=== PATIENT | female | born 1950 | race Caucasian/White ===

== ENCOUNTER 2018-06-17 12:37 | Inpatient (IN) ==
--- NOTE | 2018-06-16 16:45 | Discharge Summary ---
<Saturnino Jara - Last Filed: 06/17/18 12:52> Orders not resulted at time of discharge: Pending orders 06/17/18 01:00 XR knee RT limited 1-2V [XR] Routine Hemoglobin and Hematocrit [HEME] Routine 06/17/18 07:55 US anesthesia pain block [US] Routine Date of Encounter: 06/17/18 - Discharge Diagnosis (1) Osteoarthritis of right knee Priority: Primary Status: Chronic Qualifiers: Osteoarthritis type: unspecified Qualified Code(s): M17.11 - Unilateral primary osteoarthritis, right knee (2) Status post total right knee replacement Priority: Primary Status: Acute (3) Osteoporosis Priority: Secondary Status: Chronic Qualifiers: Osteoporosis type: unspecified Presence of current pathological fracture: unspecified Qualified Code(s): M81.0 - Age-related osteoporosis without current pathological fracture (4) Diverticulosis Priority: Secondary Status: Chronic Qualifiers: Diverticulosis site: unspecified location Diverticulosis bleeding: diverticulosis without bleeding Qualified Code(s): K57.90 - Diverticulosis of intestine, part unspecified, without perforation or abscess without bleeding (5) History of gastric bypass Priority: Secondary Status: Chronic (6) JORDAN (obstructive sleep apnea) Priority: Secondary Status: Chronic - Hospital Course Hospital course: Ms. Starr is a 68 year old female - Time Spent with Patient Total time spent providing and/or coordinating discharge services: - Discharge Medications Home Medications: Aspirin Enteric Coated [Aspirin EC] 325 mg PO BID 10 Days #20 tablet. [Rx] OxyCODONE Immed Rel [Roxicodone 5 MG] 5 mg PO Q6HR PRN 7 Days #28 tablet [Rx] Cholecalciferol (D-3) [Vitamin D] 1,000 unit PO DAILY 06/17/18 [History] Escitalopram [Lexapro] 10 mg PO DAILY 06/17/18 [History] Ferrous Sulfate [Iron] 325 mg PO DAILY 06/17/18 [History] Ibandronate Sodium [Boniva] 150 mg PO QMONTH 06/17/18 [History] Latanoprost [Xalatan] 1 drop BOTH EYES HS 06/17/18 [History] Lisinopril [Zestril] 10 mg PO DAILY 06/17/18 [History] Quinine Sulfate [Qualaquin] 324 mg PO BID 06/17/18 [History] Temazepam [Restoril] 15 mg PO HS PRN 06/17/18 [History] clonazePAM [Klonopin] 0.5 mg PO HS 06/17/18 [History] Allergies/Adverse Reactions: 3 Allergy/AdvReac Type Severity Reaction Status Date / Time clindamycin AdvReac See Verified 06/17/18 13:09 Comments Penicillins AdvReac See Verified 06/17/18 13:09 Comments Sulfa (Sulfonamide AdvReac See Verified 06/17/18 13:09 Antibiotics) Comments cindamycin AdvReac See Uncoded 06/17/18 13:09 Comments Primary care physician: Griffin Guajardo MD - Patient Status Disposition: Transfer Inpatient Rehab Fac Condition: Good - Discharge Instructions Follow Up With: Saturnino Jara MD [Partnered Physician] - 07/17/18 4:10 pm Kristin Hodges PAC [Physician Registered Nurse Ambulatory] - 06/27/18 8:45 am (Second followup: 07/05/18 @ 10:15am) Additional Instructions: Discharge Instructions: Total Knee Replacement Please call [facility] ([phone]), your Primary Care Physician, or report to the Emergency Room if you have any of the following symptoms: Nausea, vomiting, fever greater that 101.5, swelling, chest pain, shortness of breath, increased pain/redness/drainage/odor for your incision site, numbness/ tingling, or any other concerning symptoms. ACTIVITY:Weight-bearing as tolerated. You may progress off support (crutches or walker) as tolerated. Incentive Spirometer 10 times an hour. MEDICATIONS: Upon discharge resume your home medications. Take all the medications as prescribed. Take a stool softener if taking narcotic pain medications. Stool softeners are only effective if you drink enough fluids. Drink 6-8 glass of water or fluids a day, unless this is not allowed for another health problem. Despite using stool softeners, if you haven't had a bowel movement in 3 days, please switch to a gentle laxative. Gentle laxatives are sold over the counter. You should have a bowel movement within 24 hours, if not call the office. You will be discharged from the hospital with a prescription for pain medication. You are encouraged to decrease the use of narcotic pain medication as tolerated. Should you require a refill, please call the office. [facility] prescribes narcotic pain medication for only 4-6 weeks after surgery. If you require pain medication beyond this time period, you may be referred to your Primary Care Physician or to the Pain Clinic for further evaluation. Plan ahead for refills on pain medication as many narcotics either need to be picked up at the office or mailed. It is best to call 48-72 hours in advance of needing a prescription refill so you don't run out of medication. To help control the post-operative pain, you may take NSAIDs (Aleve,Advil, Motrin, Ibuprofen, Naprosyn) or Tylenol as prescribed on the bottle in addition to the pain medication. ANTICOAGULATION (blood thinners): Continue your Aspirin, Lovenox or Coumadin as prescribed to help prevent a blood clot in the leg or in the lungs. As long as your incision remains dry and you tolerate the NSAIDs (Aleve, Advil, Motrin, ibuprofen, naprosyn), it is OK to use the NSAIDS while you are taking your anticoagulation medication. Should your incision start to drain, stop the NSAID and contact our office. Common symptoms of blood clot in the legs include: localized pain, swelling, calf tenderness, redness or discoloration of the skin. Blood clot in the lung symptoms include: shortness of breath, rapid pulse, sweating, and chest pain that worsens with deep breathing, coughing up blood, lightheadedness, feelings of anxiety. If you experience any of these symptoms notify your physician immediately, go to the emergency room, or if having trouble breathing, call 911. WOUND CARE: Leave the dressing on for 7 to 10days. You may change the dressing if it becomes saturated greater than 50%. Do not get the dressing wet at anytime. Wash your hands with antibacterial soap, rinse and dry prior to any wound care. If you have carlos the visiting nurse or rehab facility can remove the stapes 10-14 days after surgery and place steri-strips across the wound. Leave the steri-strips in place until they fall off on their won. You may let water from the shower run on top of the steri-strips. If you do not have a visiting nurse or rehab facility, you will need to return to the office at 10-14 days for the cralos to be removed. If you have itching or redness around the dressing call the office. FOLLOW-UP: Please follow up with your surgeon in the orthopedic clinic in 4 weeks from the day of surgery. If you have carlos that need to be removed, you will need to come back to the office in 10-14 days from the day of surgery. <Cat Jaeger E - Last Filed: 06/21/18 12:34> Orders not resulted at time of discharge: Pending orders 06/17/18 01:00 XR knee RT limited 1-2V [XR] Routine Hemoglobin and Hematocrit [HEME] Routine Date of Encounter: 06/21/18 Time of Encounter: 12:34 - Discharge Diagnosis (1) Osteoarthritis of right knee Priority: Primary Status: Chronic Qualifiers: Osteoarthritis type: unspecified Qualified Code(s): M17.11 - Unilateral primary osteoarthritis, right knee (2) Status post total right knee replacement Priority: Primary Status: Acute (3) JORDAN (obstructive sleep apnea) Priority: Secondary Status: Chronic (4) Osteoporosis Priority: Secondary Status: Chronic Qualifiers: Osteoporosis type: unspecified Presence of current pathological fracture: unspecified Qualified Code(s): M81.0 - Age-related osteoporosis without current pathological fracture (5) HTN (hypertension) Priority: Secondary Status: Chronic Qualifiers: Hypertension type: unspecified Qualified Code(s): I10 - Essential (primary ) hypertension (6) Diverticulosis Priority: Secondary Status: Chronic Qualifiers: Diverticulosis site: unspecified location Diverticulosis bleeding: diverticulosis without bleeding Qualified Code(s): K57.90 - Diverticulosis of intestine, part unspecified, without perforation or abscess without bleeding (7) History of gastric bypass Priority: Secondary Status: Chronic - Hospital Course Hospital course: Ms. Starr is a 68 year old female POD# 4 status post right total knee robotic 06/17/18 Dr. Jara Patient seen at bedside. Resting comfortably in bed. Alert and oriented x 3. Incision clean dry and intact. Dressing intact. No calf tenderness to bilateral lower extremities. neurovascularly intact to bilateral lower extremities Labwork and medications reviewed Vital signs reviewed. Pain control: Adequate - patient with intermittent muscle spasms - tizanidine and Lidoderm for local and systemic pain relief 06/18. These have been helping pain. Participating in PT. PT --> rehab swing bed. All questions and concerns addressed. Educated on use of incentive spirometer, ambulation, and hydration. Patient educated on post-operative restrictions and care. Addressed: see above. Patient converted to inpt status D/C plan: accepted at [facility] rehab on Thursday 06/21 Patient had outpatient scripts filled and daughter took home on POD#1 when patient was anticipated home discharge. Patient was subsequently found to need inpatient rehab. Patient to take ASA 325mg BID for 10 days total and use script filled of Oxycodone when discharged from [facility] for home use as directed on label. Keep follow up with [facility]. - Time Spent with Patient Total time spent providing and/or coordinating discharge services: Date of admission: 06/17/18 Primary care physician: Griffin Guajardo MD Anticipated date of discharge: 06/21/18 Labs on day of discharge: Laboratory Results - last 72 hr 06/19/18 06/19/18 00:50 00:50 Hgb 8.9 L Hct 27.7 L Sodium 134 L Potassium 4.0 Chloride 103 Carbon Dioxide 26 BUN 17 Creatinine 0.83 Est GFR ( Amer) > 60 Est GFR (Non-Af Amer) > 60 BUN/Creatinine Ratio 20 Glucose 141 H Calculated Osmolality 282 Calcium 8.4 L - Impressions Knee X-Ray 06/17/18 01:00 IMPRESSION: Status post right knee arthroplasty without acute postoperative complication. D/ / 06/17/2018 16:19:54 Jamil Murphy MD / Lucrecia Musa Interpreting Provider: Jamil Murphy MD - Patient Status Functional capacity at discharge: uses cane/walker Overall status at discharge: patient is progressing back to baseline - Diet and Activity Activity: as per physical therapy Diet: advance to your usual diet
--- NOTE | 2018-06-16 16:47 | Physician Discharge Referral ---
Home Health/Hosp Referral Info Transfer to: Home Health Attending Provider: Dr. Saturnino Jara Provider in Charge Post Discharge: PCP - Diagnosis (1) Osteoarthritis of right knee Priority: Primary Status: Chronic (2) Status post total right knee replacement Priority: Primary Status: Acute (3) JORDAN (obstructive sleep apnea) Priority: Secondary Status: Chronic (4) Osteoporosis Priority: Secondary Status: Chronic (5) HTN (hypertension) Priority: Secondary Status: Chronic (6) Diverticulosis Priority: Secondary Status: Chronic (7) History of gastric bypass Priority: Secondary Status: Chronic - Respiratory Orders Smoking Cessation: Smoking cessation has been advised. For more information, call the [place] Tobacco Quit Line at 7-089-HQYL-NOW. - Dressing/Wound Care Site: right knee Type of Dressing/Treatments w/Frequency: Opsite placed. Keep dressing intact until first follow up appointment. If greater than 50% saturated, notify office, remove dressing and place appropriate dressing back in place. Leave Zipline intact. Opsite dressing is water resistant, not water-proof. OK to shower, but do not get dressing wet. - Diet/Nutrition Diet/Nutrition Orders: Regular - Activity Activity Orders: Up ad sarah, Ambulate, Chair, Walker Activity: List: Total Knee replacement Precautions x 6 weeks Apply cold therapy wrap 3-6x/day for 20 minutes at a time. Encourage ambulation throughout the day and incentive spirometer 10x/hour. Elevate affected extremity above heart as tolerated. Brace: Wear knee immobilizer at night x 2 weeks. - Services Needed Following services are medically necessary services: Nursing, Home Health Aide, Physical Therapy, Occupational Therapy, Med Social Work - Transfer Medications Prescriptions: OxyCODONE Immed Rel [Roxicodone 5 MG] 5 mg PO Q6HR PRN 7 Days #28 tablet PRN Reason: Severe Pain Aspirin Enteric Coated [Aspirin EC] 325 mg PO BID 10 Days #20 tablet. Home Medications: Azithromycin [Azithromycin 6-Tab Pack] 250 mg PO DAILY #6 tab 11/20/15 [Rx] Benzonatate [Tessalon] 200 mg PO TID PRN #30 capsule 11/20/15 [Rx] GuaiFENesin ER [Mucinex] 1,200 mg PO BID #20 tbbp.12hr 11/20/15 [Rx] Aspirin Enteric Coated [Aspirin EC] 325 mg PO BID 10 Days #20 tablet. [Rx] OxyCODONE Immed Rel [Roxicodone 5 MG] 5 mg PO Q6HR PRN 7 Days #28 tablet [Rx] Allergies/Adverse Reactions: 3 Allergy/AdvReac Type Severity Reaction Status Date / Time clindamycin Allergy See Verified 05/27/18 15:43 Comments Penicillins Allergy See Verified 05/27/18 15:43 Comments Sulfa (Sulfonamide Allergy See Verified 05/27/18 15:42 Antibiotics) Comments cindamycin Allergy See Uncoded 09/04/17 23:08 Comments Certification: Further, I certify that my clinical findings support that this patient is homebound (i.e. absences from home require considerable and taxing effort and are for medical reasons or tenriism services or infrequently or short duration when for other reasons) because: Homebound Reason: Post-surgery restriction and or conditions limit ability to leave home Attestation: My signature below is to certify that this patient is under my care and that I, or nurse practitioner, or a physician development assistant working with me, has a face-to- face encounter with this patient.
--- NOTE | 2018-06-17 12:52 | History & Physical Report ---
Date of Encounter: 06/17/18 Time of Encounter: 12:52 24 Hour HP Update - Instructions Instructions: If the History and Physical is less than 30 days old and was completed prior to A.M. admission and or procedure and has NOT been updated on calendar day of procedure please complete this update prior to performing procedure. - Update Patient reports changes in Medical Condition: No Changes in examination, assessment, or condition: No Changes in Medication: No Preop tests/diagnostics Reviewed: Yes Surgery Remains Indicated: Yes Consent for Planned Operative Procedure(s) Verified: Yes - Pre-Operative Checklist Preoperative Checklist Indicated: No Prophylactic Antibiotic Ordered: Yes Is VTE Prophylaxis Indicated?: Yes
[2018-06-17] MEDS ORDERED: CeFAZolin Syr 2,000MG/20 ML 2,000 MG/20 ML SYRINGE IVPB ONE (12:55)
[2018-06-17] MEDS ORDERED: Ringers Solution, Lactated 1,000 ML IVC SCH ×2 (13:00→17:24)
[2018-06-17] MEDS ORDERED: ROPIVACAINE HCL/PF 0.5% 30 ML VIAL ONE (13:09)
[2018-06-17] MEDS ORDERED: Bupivacaine/Clonidine Syringe 1 EACH SYRINGE ONE (13:10)
[2018-06-17] MEDS ORDERED: Ethanol\\Acetic Acid\\Na Ace\\Ben 1,000 ML IRRIG.SOLN IR ONE (13:10)
--- NOTE | 2018-06-17 13:12 | Anesthesia Evaluation PreOp ---
Date of Encounter: 06/17/18 Time of Encounter: 13:10 - Past History Planned Operation: Right TKA Cardiac History: HTN Pulmonary History: JORDAN Dx (Not using CPAP) BAR STAFF History: Other (Insomnia, arthritis) Other Medical History: Renal (Renal Insufficiency, Stage 2 CKD on pre operative labs), Other (Hypoglycemia episodes (infrequent), Elevated PTT in preop labs) Anesthesia History: No Prior Anesthetic Complications, Past Anesthesia Alcohol Use: none Drug use: none Medications and Allergies Aspirin Enteric Coated [Aspirin EC] 325 mg PO BID 10 Days #20 tablet. [Rx] OxyCODONE Immed Rel [Roxicodone 5 MG] 5 mg PO Q6HR PRN 7 Days #28 tablet [Rx] Cholecalciferol (D-3) [Vitamin D] 1,000 unit PO DAILY 06/17/18 [History] Escitalopram [Lexapro] 10 mg PO DAILY 06/17/18 [History] Ferrous Sulfate [Iron] 325 mg PO DAILY 06/17/18 [History] Ibandronate Sodium [Boniva] 150 mg PO QMONTH 06/17/18 [History] Latanoprost [Xalatan] 1 drop BOTH EYES HS 06/17/18 [History] Lisinopril [Zestril] 10 mg PO DAILY 06/17/18 [History] Quinine Sulfate [Qualaquin] 324 mg PO BID 06/17/18 [History] Temazepam [Restoril] 15 mg PO HS PRN 06/17/18 [History] clonazePAM [Klonopin] 0.5 mg PO HS 06/17/18 [History] 3 Allergy/AdvReac Type Severity Reaction Status Date / Time clindamycin AdvReac See Verified 06/17/18 13:09 Comments Penicillins AdvReac See Verified 06/17/18 13:09 Comments Sulfa (Sulfonamide AdvReac See Verified 06/17/18 13:09 Antibiotics) Comments cindamycin AdvReac See Uncoded 06/17/18 13:09 Comments - Meds/Allergy Pre-op Review Medications Reviewed: Yes Allergies Reviewed: Yes Beta Blockers on Current Med List: No Anesthesia Results - Labs Laboratory Tests 05/27/18 05/27/18 05/27/18 15:43 15:43 15:43 Hgb 12.0 Hct 37.3 Plt Count 193 PT 11.4 INR 1.0 APTT 47.5 H Sodium 140 Potassium 4.5 Chloride 111 H Carbon Dioxide 23 Creatinine 1.13 Est GFR (Non-Af Amer) 48 L Anesthesia Exam O2 Sat Height 1.6 m Height 1.6 m Weight 70.76 kg Weight 70.76 kg O2 Sat by Pulse Oximetry 100 Vital Signs/O2 Sat/Glucose, Most Recent Temp Pulse Resp BP Pulse Ox 97.9 F 66 18 126/69 100 06/17/18 12:57 06/17/18 12:57 06/17/18 12:57 06/17/18 12:57 06/17/18 12:57 Blood Glucose* 83 NPO (# of Hours): 8 - HEENT Pupil (Motor): Pupils equal Mallampati: I Teeth: Normal Oral Opening: Greater than 3 - BAR STAFF LOC: Oriented - Cardiac Rhythm: Regular - Pulmonary Breath Sounds: bilateral Clear Anesthesia Assess/Plan ASA Score: 3 Modified Brian Scale for Level of Consciousness: Cooperative, oriented, and tranquil Anesthetic Plan: General, Regional (Nerve block for post operative pain) Monitoring Plan: Standard Monitors Recovery Plan: PACU
[2018-06-17] MEDS ORDERED: *HR* Midazolam HCl 2 MG/2 ML VIAL ONE (13:16)
[2018-06-17] MEDS ORDERED: Ondansetron 4 MG/2 ML VIAL ONE (13:16)
[2018-06-17] MEDS ORDERED: *HR* FentaNYL (PF) 100 MCG/2 ML VIAL ONE ×2 (13:16→13:46)
[2018-06-17] MEDS ORDERED: Dexamethasone 4 MG/ML VIAL ONE (13:16)
[2018-06-17] MEDS ORDERED: Lidocaine -MPF 2% 2 ML VIAL ONE (13:17)
[2018-06-17] MEDS ORDERED: Propofol 500 MG/50 ML INFUS..BTL ONE (13:17)
[2018-06-17] MEDS ORDERED: *HR* Rocuronium Bromide 50 MG/5 ML VIAL ONE (13:45)
[2018-06-17] MEDS ORDERED: Lidocaine -MPF 4% 5 ML AMPUL ONE (13:45)
[2018-06-17] MEDS ORDERED: *HR* Succinylcholine 200 MG/10 ML VIAL IVP ONE (13:45)
[2018-06-17] MEDS ORDERED: EPHEDrine 50 MG/ML VIAL ONE (14:05)
[2018-06-17] MEDS ORDERED: *HR* PHENYLEPHRINE 1,000 MCG/10 ML SYRINGE IVP ONE (14:07)
[2018-06-17] MEDS ORDERED: *HR* Promethazine 25 MG/ML VIAL IVP PRN (14:36)
[2018-06-17] MEDS ORDERED: *HR* HYDROmorphone 2 MG TABLET PO PRN (14:36)
[2018-06-17] MEDS ORDERED: Dexamethasone 4 MG/ML VIAL IVP ONE (14:36)
[2018-06-17] MEDS ORDERED: Naloxone 0.4 MG/ML INJ IVP PRN ×2 (14:36→17:24)
[2018-06-17] MEDS ORDERED: *HR* OxyCODONE Immed Rel 5 MG TABLET PO PRN ×2 (14:36→17:24)
--- NOTE | 2018-06-17 14:42 | Anesthesia Procedures ---
Date of Encounter: 06/17/18 Time of Encounter: 13:36 Procedures: Anesthesia - Nerve Block Procedure Date: 06/17/18 Time: 13:36 Allergies/Adv Reactions: allergies noted, no complications/reactions noted with block Pre-op Diagnosis: Right knee arthritis Surgical Procedure: Right total knee arthroplasty Checklist: Correct Patient Identifier, Correct procedure, History checked Correct side: Right Blood Thinner: No Monitor Applied: EKG, BP, Pulse Oximetry Supplemental Oxygen via Nasal Cannula (L/min): 2 Sedation: Versed (mg): 2 Sedation: Fentanyl (mcg): 100 Indication: Post Op Analgesia Pre-op Neuro Deficits: No Block Type: Other (Adductor canal, IPACK ) Catheter placed: No Sterile Technique: Yes Ultrasound used: Yes Anatomy identified: Yes Visual spread of Local: Yes Neuro Stimulation: No Blood on Needle Aspiration: No Smooth Injection of Local: Yes Pain with Injection of Local: No Prep: Chlorhexadine Needle: 21 x 100 mm Stimuplex Local: 0.25% Bupivicaine w/Clonidine 20 mcg/cc (30 ml with IPACK), Ropivacaine ( 30ml 0.5% Ropivacaine with adductor canal block) Number of Attempts: 1 Complications: None/effective block Vitals: Vital Signs/O2 Sat/Glucose, Most Recent Temp Pulse Resp BP Pulse Ox 97.9 F 63 15 108/53 100 06/17/18 12:57 06/17/18 13:45 06/17/18 13:45 06/17/18 13:45 06/17/18 13:45 Blood Glucose* 83
[2018-06-17] MEDS ORDERED: Neostigmine Methylsulfate 3 MG/3 ML SYRINGE ONE (14:53)
--- NOTE | 2018-06-17 14:53 | Orthopedic Operative Note ---
Date of procedure: 06/17/18 Pre-op diagnosis: Right knee arthritis Post-op diagnosis: same Procedure: Procedure: Right robotic-assisted Total knee replacement Estimated blood loss: 300 cc Hardware: Metal and polyethylene replacement. Carville Femur: 4 Tibia:5 TS insert: 16 Patella: 36 Exam Under anesthesia: 8 degrees flexion contracture 16 degree varus as calculated by the robot full flexion and no instability Procedural Notes: Grade 4 arthritic changes all 3 compartments. Operative procedure: The patient was brought to the operating room and placed on the operating room table. After general anesthesia was administered the operative knee was examined. Findings were noted in the exam under anesthesia. The operative extremity was prepped and draped in sterile surgical fashion. The patient received IV antibiotics prior to skin incision. A standard midline incision was made centered over the patella. The incision was made through the skin and subcutaneous tissue. A medial parapatellar tendon approach was performed. Care was taken to preserve tissue along the medial aspect of the patella. And to protect the patella tendon. The deep MCL was released off the medial tibia. The infra patella fat pad was excised. The patella was everted and cut was made at the level of the insertion of the quadriceps and patella tendon. The patella was sized to 36 the guide was seated and the lug holes are drilled. Knee was brought into flexion. Patient noted to have grade 4 arthritic changes all 3 compartments. Steinmann pins were placed in the tibia and the femur for the tibial and femoral arrays respectively. Checkpoints were also placed in the tibia and the femur for calculation purposes. The knee including the femur and the tibial registered. Osteophytes, ACL and PCL were excised at this point. Extension and flexion were assessed with a valgus stress components were adjusted on the computer to balance the knee. Femoral cuts were made first with robotic assistance, these included the anterior cut posterior cuts chamfer cuts. Tibial cut was then performed with robotic assistance as well. Bone fragments were removed, as well as the medial and lateral meniscus. The size 4 femoral guide was seated box cut was made lug holes are drilled. The size 5 tibial tray was seated and prepared with the fin cutter. Trial reduction with the 16 TS Francia revealed extension of 0 degree and 7 degree varus full flexion. No varus valgus instability. Trial reduction revealed excellent patella tracking. All trial components were removed all bony surfaces were irrigated. The Tibia was seated followed by the femur, The Francia size 16 was seated and secured patella. Patient had similar findings for motion and stability. The knee was closed by the PA. The knee was then irrigated out with 2 L of pulse irrigation. The extensor mechanism was closed with #2 FiberWire suture and #2 PDS suture. The subcutaneous tissue was then irrigated and closed deep with #1 PDS suture superficially with 0 PDS suture and skin was closed with zip tie The patient was then placed in a sterile dressing and a postoperative brace extubated and transferred to recovery room in stable condition. Anesthesia: GETA Surgeon: Saturnino Jara Was there an nurse practitioner physicians assistant present: Yes Skill Labor: Kristin Hodges Estimated blood loss (cc): 300 Condition: stable Disposition: PACU
[2018-06-17] MEDS ORDERED: *HR* Morphine 10 MG/ML VIAL ONE (15:17)
[2018-06-17] MEDS: MORPHINE SUL Oral CONC 10 MG/0.5 ML ORAL.SYG SL PRN ×2 (15:45→15:56)
[2018-06-17] MEDS ORDERED: NON-FORMULARY MEDICATION 1 EACH EACH (Ibandronate Sodium [Boniva] 150 MG) PO SCH (17:24)
[2018-06-17] MEDS ORDERED: Sennosides 8.6 MG TABLET PO PRN (17:24)
[2018-06-17] MEDS ORDERED: Ondansetron 4 MG/2 ML VIAL IVP PRN (17:24)
[2018-06-17] MEDS ORDERED: traMADol 50 MG TABLET PO PRN (17:24)
[2018-06-17] MEDS ORDERED: MOM Conc 10 ML UD.LIQ PO PRN (17:24)
[2018-06-17] MEDS ORDERED: Temazepam 15 MG CAPSULE PO PRN ×2 (17:24)
[2018-06-17] MEDS ORDERED: Vancomycin 1,000 MG VIAL IVPB SCH (17:24)
[2018-06-17] MEDS: *HR* OxyCODONE/APAP 5/325 TABLET PO PRN (18:17)
[2018-06-17] MEDS: *HR* Enoxaparin 30 MG/0.3 ML SYRINGE SQ SCH (18:18)
--- NOTE | 2018-06-17 18:25 | Anesthesia Evaluation Post Op ---
Date of Encounter: 06/17/18 Time of Encounter: 16:15 Notes: Patient's vital signs have been reviewed. Patient is stable postoperatively and has adequately recovered from anesthesia. Patient is determined to have stable airway patency and respiratory function including respiratory rate and oxygen saturation. Patient has a stable heart rate, blood pressure and adequate hydration. Patients mental status is acceptable. Patients temperature is appropriate. Pain and nausea are adequately controlled. - Discharge PostOp Status: Transfer Patient to floor
[2018-06-17] MEDS: Latanoprost 2.5 ML BOTTLE BOTH EYES SCH (21:14)
[2018-06-17] MEDS: QUININE SULFATE 324 MG PO SCH (21:14)
[2018-06-17] MEDS: clonazePAM 0.5 MG TABLET PO SCH (21:14)
[2018-06-18] MEDS: *HR* OxyCODONE/APAP 5/325 TABLET PO PRN ×5 (00:56→20:10)
[2018-06-18 01:44] LABS: Hematocrit 30.6 % (35.3-44.9); Hemoglobin 9.5 g/dL (11.5-15.4)
[2018-06-18 02:03] LABS: BUN/Creatinine Ratio 24 (6-26); Blood Urea Nitrogen 20 mg/dL (8-23); Calcium 8.3 mg/dL (8.6-10.3); Carbon Dioxide 22 mEq/L (23-29); Chloride 105 mEq/L (98-107); Glucose 213 mg/dL (70-105); Osmolality,Calculated 287 (280-300); Sodium 134 mEq/L (136-145); eGFR For Non-African Americans > 60 (> 60)
[2018-06-18] MEDS: *HR* Enoxaparin 30 MG/0.3 ML SYRINGE SQ SCH ×2 (05:12→17:24)
--- NOTE | 2018-06-18 06:51 | Orthopedics Progress Note ---
Date of Encounter: 06/18/18 Time of Encounter: 06:51 - Assessment and Plan (1) Osteoarthritis of right knee Current Visit: No Status: Chronic Qualifiers: Osteoarthritis type: unspecified Qualified Code(s): M17.11 - Unilateral primary osteoarthritis, right knee (2) Status post total right knee replacement Current Visit: No Status: Acute (3) Osteoporosis Current Visit: No Status: Chronic Qualifiers: Osteoporosis type: unspecified Presence of current pathological fracture: unspecified Qualified Code(s): M81.0 - Age-related osteoporosis without current pathological fracture (4) Diverticulosis Current Visit: No Status: Chronic Qualifiers: Diverticulosis site: unspecified location Diverticulosis bleeding: diverticulosis without bleeding Qualified Code(s): K57.90 - Diverticulosis of intestine, part unspecified, without perforation or abscess without bleeding (5) History of gastric bypass Current Visit: No Status: Chronic (6) JORDAN (obstructive sleep apnea) Current Visit: No Status: Chronic Subjective Interval history: Patient was seen this morning doing well without complaints. Afebrile vital signs stable. Operative extremity: Neurovascularly intact Dressing clean dry and intact Calves nontender Assessment and plan: Continue with postoperative care Hematocrit 30.6 discharged today Objective Vital signs: Vital Signs Temp Pulse Resp BP Pulse Ox 06/18/18 03:45 97.6 F 69 16 98/60 98 06/17/18 23:35 97.7 F 65 16 99/62 96 06/17/18 22:32 97.8 F 69 16 100/62 98 06/17/18 21:07 97.5 F L 68 16 92/55 100 06/17/18 19:39 97.9 F 63 16 106/62 100 06/17/18 19:26 96.5 F L 62 16 92/55 94 06/17/18 18:20 97.4 F L 68 17 101/67 93 06/17/18 17:50 97.5 F L 73 16 119/67 100 06/17/18 17:07 97.5 F L 63 16 101/65 100 06/17/18 16:27 97.6 F 58 16 121/56 100 06/17/18 16:17 57 16 131/59 100 06/17/18 16:07 59 14 124/60 100 06/17/18 15:57 97.8 F 65 16 123/62 100 06/17/18 15:47 62 16 118/59 100 06/17/18 15:37 59 16 128/62 99 06/17/18 15:27 98.0 F 66 16 127/57 100 06/17/18 13:45 63 15 108/53 100 06/17/18 13:23 67 16 134/62 100 06/17/18 12:57 97.9 F 66 18 126/69 100 Intake and Output 06/17/18 06/17/18 06/18/18 15:59 23:59 07:59 Intake Total 20 / 20 500 / 500 250 / 250 Output Total 300 / 300 0 / 0 Balance -280 / -280 500 / 500 250 / 250 Intake: IV Fluids 20 / 20 250 / 250 Ancef Syringe 2,000 MG/20 ML 2, 20 / 20 000 mg In 20 ml @ 200 mls/hr IVPB PREOP ONE Rx#:[id number] Vancocin 1,000 MG In 0.9 % 250 / 250 Sodium Chloride 250 ML @ 167 mls/hr IVPB Q12H [facility] Rx#: [id number] Oral 250 / 250 250 / 250 Output: Urine 0 / 0 Estimated Blood Loss 300 / 300 Other: # Voids 1 1 Weight 70.76 kg Blood Glucose* 112 - Labs CBC & BMP: 06/18/18 01:15 06/18/18 01:15 Labs: Abnormal lab results Hgb 9.5 g/dL (11.5-15.4) L D 06/18/18 01:15 Hct 30.6 % (35.3-44.9) L 06/18/18 01:15 Sodium 134 mEq/L (136-145) L 06/18/18 01:15 Carbon Dioxide 22 mEq/L (23-29) L 06/18/18 01:15 Glucose 213 mg/dL (70-105) H 06/18/18 01:15 Calcium 8.3 mg/dL (8.6-10.3) L 06/18/18 01:15 - VTE Documentation of Mechanical Device: Venous foot pump, device Consult Discharge Plan - Plan Referrals: Griffin Guajardo MD [Primary Care Provider] - Prescriptions: Aspirin Enteric Coated [Aspirin EC] 325 mg PO BID 10 Days #20 tablet. OxyCODONE Immed Rel [Roxicodone 5 MG] 5 mg PO Q6HR PRN 7 Days #28 tablet PRN Reason: Severe Pain
[2018-06-18] MEDS: Cholecalciferol (D-3) 1,000 UNIT TABLET PO SCH (08:29)
[2018-06-18] MEDS: QUININE SULFATE 324 MG PO SCH ×2 (08:29→20:11)
[2018-06-18] MEDS ORDERED: tiZANidine 4 MG TABLET PO PRN (12:28)
--- NOTE | 2018-06-18 18:28 | Event Note ---
Date of Encounter: 06/18/18 Time of Encounter: 12:50 PCR- POD# 1 status post right total knee robotic 06/17/18 Dr. Jara PCR - Patient seen at bedside. Alert and oriented x 3. Incision clean dry and intact. Dressing intact. No calf tenderness to bilateral lower extremities. neurovascularly intact to bilateral lower extremities Labwork and medications reviewed. H/H 9.5/30.6 Vital signs reviewed. Pain control: Adequate - patient with intermittent muscle spasms will add tizanidine and Lidoderm for local and systemic pain relief. Participating in PT. PT is recommending home with home health after afternoon session. All questions and concerns addressed. Educated on use of incentive spirometer, ambulation, and hydration. Patient educated on post-operative restrictions and care. Addressed: see above. D/C plan: Home with home health after afternoon therapy session.
[2018-06-18] MEDS: Latanoprost 2.5 ML BOTTLE BOTH EYES SCH (20:11)
[2018-06-18] MEDS: clonazePAM 0.5 MG TABLET PO SCH (20:11)
[2018-06-19 01:23] LABS: Hematocrit 27.7 % (35.3-44.9); Hemoglobin 8.9 g/dL (11.5-15.4)
[2018-06-19 01:36] LABS: BUN/Creatinine Ratio 20 (6-26); Blood Urea Nitrogen 17 mg/dL (8-23); Calcium 8.4 mg/dL (8.6-10.3); Carbon Dioxide 26 mEq/L (23-29); Chloride 103 mEq/L (98-107); Glucose 141 mg/dL (70-105); Osmolality,Calculated 282 (280-300); Sodium 134 mEq/L (136-145); eGFR For Non-African Americans > 60 (> 60)
[2018-06-19] MEDS: *HR* Enoxaparin 30 MG/0.3 ML SYRINGE SQ SCH ×2 (04:34→18:40)
[2018-06-19] MEDS: *HR* OxyCODONE/APAP 5/325 TABLET PO PRN ×3 (04:34→21:15)
--- NOTE | 2018-06-19 06:49 | Orthopedics Progress Note ---
Date of Encounter: 06/19/18 Time of Encounter: 06:48 - Assessment and Plan (1) Osteoarthritis of right knee Current Visit: No Status: Chronic Qualifiers: Osteoarthritis type: unspecified Qualified Code(s): M17.11 - Unilateral primary osteoarthritis, right knee (2) Status post total right knee replacement Current Visit: No Status: Acute (3) Osteoporosis Current Visit: No Status: Chronic Qualifiers: Osteoporosis type: unspecified Presence of current pathological fracture: unspecified Qualified Code(s): M81.0 - Age-related osteoporosis without current pathological fracture (4) Diverticulosis Current Visit: No Status: Chronic Qualifiers: Diverticulosis site: unspecified location Diverticulosis bleeding: diverticulosis without bleeding Qualified Code(s): K57.90 - Diverticulosis of intestine, part unspecified, without perforation or abscess without bleeding (5) History of gastric bypass Current Visit: No Status: Chronic (6) JORDAN (obstructive sleep apnea) Current Visit: No Status: Chronic (7) Acute blood loss anemia Current Visit: Yes Status: Acute (8) HTN (hypertension) Current Visit: No Status: Chronic Qualifiers: Hypertension type: unspecified Qualified Code(s): I10 - Essential (primary ) hypertension Subjective Interval history: Patient was seen this morning doing well without complaints. Afebrile vital signs stable. Operative extremity: Neurovascularly intact Dressing clean dry and intact Calves nontender Assessment and plan: Continue with postoperative care Hematocrit 27.7 discharge held secondary to inability to go home secondary to rehabilitation possible discharge today Objective Vital signs: Vital Signs Temp Pulse Resp BP Pulse Ox 06/19/18 02:53 98.8 F 86 14 119/72 99 06/18/18 23:11 99.1 F 75 16 105/62 96 06/18/18 18:44 99.0 F 74 16 116/69 98 06/18/18 16:11 98.9 F 69 16 111/69 99 06/18/18 11:30 98.2 F 67 16 118/61 98 06/18/18 07:49 97.5 F L 58 16 126/57 100 Intake and Output 06/18/18 06/18/18 06/19/18 15:59 23:59 07:59 Intake Total 360 / 360 290 / 290 Output Total 200 / 200 Balance 360 / 360 90 / 90 Intake: Oral 360 / 360 290 / 290 Output: Urine 200 / 200 Other: Meal Lunch Dinner Percent of Meal Consumed 30% 60% # Voids 1 1 - Labs CBC & BMP: 06/19/18 00:50 06/19/18 00:50 Labs: Abnormal lab results Hgb 8.9 g/dL (11.5-15.4) L 06/19/18 00:50 Hct 27.7 % (35.3-44.9) L 06/19/18 00:50 Sodium 134 mEq/L (136-145) L 06/19/18 00:50 Glucose 141 mg/dL (70-105) H 06/19/18 00:50 Calcium 8.4 mg/dL (8.6-10.3) L 06/19/18 00:50 - VTE Documentation of Mechanical Device: Venous foot pump, device Consult Discharge Plan - Plan Referrals: Griffin Guajardo MD [Primary Care Provider] -
[2018-06-19] MEDS: Cholecalciferol (D-3) 1,000 UNIT TABLET PO SCH (08:24)
[2018-06-19] MEDS: QUININE SULFATE 324 MG PO SCH ×2 (08:24→21:16)
--- NOTE | 2018-06-19 17:13 | Event Note ---
Date of Encounter: 06/19/18 Time of Encounter: 11:50 PCR- POD# 2 status post right total knee robotic 06/17/18 Dr. Jara PCR - Patient seen at bedside. Alert and oriented x 3. Incision clean dry and intact. Dressing intact. No calf tenderness to bilateral lower extremities. neurovascularly intact to bilateral lower extremities Labwork and medications reviewed. H/H - 8.9/27.7 Vital signs reviewed. Pain control: Adequate - patient with intermittent muscle spasms - tizanidine and Lidoderm for local and systemic pain relief. These have been helping pain. Participating in PT. PT is now recommending rehab swing bed. States she had a set back yesterday with decrease in motion and ambulation. Now needed further assistance. All questions and concerns addressed. Educated on use of incentive spirometer, ambulation, and hydration. Patient educated on post-operative restrictions and care. Addressed: see above. D/C plan: accepted at [facility] swing bed rehab on Thursday 06/21 Short CBC 06/19/18 Range/Units 00:50 Hgb 8.9 L (11.5-15.4) g/dL Hct 27.7 L (35.3-44.9) % BMP 06/19/18 Range/Units 00:50 Sodium 134 L (136-145) mEq/L Potassium 4.0 (3.5-5.1) mEq/L Chloride 103 (98-107) mEq/L Carbon Dioxide 26 (23-29) mEq/L BUN 17 (8-23) mg/dL Creatinine 0.83 (0.60-1.20) mg/dL Glucose 141 H (70-105) mg/dL Calcium 8.4 L (8.6-10.3) mg/dL
--- NOTE | 2018-06-19 17:16 | Physician Discharge Referral ---
ExtendedCare Referral Info Transfer To: [facility] Provider in Charge: Jara - Diagnosis (1) Status post total right knee replacement Priority: Primary Status: Acute (2) Acute blood loss anemia Priority: Secondary Status: Acute (3) Diverticulosis Priority: Secondary Status: Chronic (4) HTN (hypertension) Priority: Secondary Status: Chronic (5) History of gastric bypass Priority: Secondary Status: Chronic (6) JORDAN (obstructive sleep apnea) Priority: Secondary Status: Chronic (7) Osteoarthritis of right knee Priority: Secondary Status: Chronic (8) Osteoporosis Priority: Secondary Status: Chronic Expected Duration of Placement: <30 days Prognosis: Good Aware of Diagnosis: Patient Aware of Prognosis: Patient - Transfer Medications Home Medications: Aspirin Enteric Coated [Aspirin EC] 325 mg PO BID 10 Days #20 tablet. [Rx] OxyCODONE Immed Rel [Roxicodone 5 MG] 5 mg PO Q6HR PRN 7 Days #28 tablet [Rx] Cholecalciferol (D-3) [Vitamin D] 1,000 unit PO DAILY 06/17/18 [History] Escitalopram [Lexapro] 10 mg PO DAILY 06/17/18 [History] Ferrous Sulfate [Iron] 325 mg PO DAILY 06/17/18 [History] Ibandronate Sodium [Boniva] 150 mg PO QMONTH 06/17/18 [History] Latanoprost [Xalatan] 1 drop BOTH EYES HS 06/17/18 [History] Lisinopril [Zestril] 10 mg PO DAILY 06/17/18 [History] Quinine Sulfate [Qualaquin] 324 mg PO BID 06/17/18 [History] Temazepam [Restoril] 15 mg PO HS PRN 06/17/18 [History] clonazePAM [Klonopin] 0.5 mg PO HS 06/17/18 [History] Allergies/Adverse Reactions: 3 Allergy/AdvReac Type Severity Reaction Status Date / Time clindamycin AdvReac See Verified 06/17/18 13:09 Comments Penicillins AdvReac See Verified 06/17/18 13:09 Comments Sulfa (Sulfonamide AdvReac See Verified 06/17/18 13:09 Antibiotics) Comments cindamycin AdvReac See Uncoded 06/17/18 13:09 Comments - Respiratory Orders Smoking Cessation: Smoking cessation has been advised. For more information, call the [place] Tobacco Quit Line at 9-302-DHWF-NOW. - Ancillary Orders May use pressure relief devices daily prn, May go on JULIO C w/family/respon republican w /meds at nurse discretion PRN, May consult with Dentist, Out Of Town Collection Clerk, [employer]ate Roofer Helper PRN - Mobility Orders Chair, Ambulate - Rehabiliation Orders Rehab Potential: Good Rehab Orders: Evaluation for Physical Therapy, Evaluation for Occupational Therapy - Treatments Skin tear care topically daily PRN per policy List/Other: Opsite dressing, leave intact until first post-operative visit. If dressing becomes >50% saturated, contact office, remove dressing and place appropriate dressing in its place. Do not allow for dressing to get wet. Zipline/[place] in place, plan to remove at post-operative day #14-16. Total Joint Precautions x 6 weeks Apply cold therapy wrap 3-6x/day for 20 minutes at a time. Encourage ambulation throughout the day Use Incentive spirometer 10x/hour. Elevate affected extremity above heart as tolerated. Brace: Wear knee immobilizer at night x 2 weeks.~ - Diet Orders Regular CERTIFICATION: I certify that the transfer of the above named patient to an Extended Care Facility is necessary for the continuing treatment of the diagnosis listed. The above information is true and accurate reflection of patient's current condition. Confidential - Redisclosure prohibited without a patient's written consent.
[2018-06-19] MEDS: clonazePAM 0.5 MG TABLET PO SCH (21:16)
[2018-06-19] MEDS: Latanoprost 2.5 ML BOTTLE BOTH EYES SCH (21:16)
[2018-06-20] MEDS: *HR* Enoxaparin 30 MG/0.3 ML SYRINGE SQ SCH ×2 (05:27→17:52)
--- NOTE | 2018-06-20 06:48 | Orthopedics Progress Note ---
Date of Encounter: 06/20/18 Time of Encounter: 06:47 - Assessment and Plan (1) Osteoarthritis of right knee Current Visit: No Status: Chronic Qualifiers: Osteoarthritis type: unspecified Qualified Code(s): M17.11 - Unilateral primary osteoarthritis, right knee (2) Status post total right knee replacement Current Visit: No Status: Acute (3) Osteoporosis Current Visit: No Status: Chronic Qualifiers: Osteoporosis type: unspecified Presence of current pathological fracture: unspecified Qualified Code(s): M81.0 - Age-related osteoporosis without current pathological fracture (4) Diverticulosis Current Visit: No Status: Chronic Qualifiers: Diverticulosis site: unspecified location Diverticulosis bleeding: diverticulosis without bleeding Qualified Code(s): K57.90 - Diverticulosis of intestine, part unspecified, without perforation or abscess without bleeding (5) History of gastric bypass Current Visit: No Status: Chronic (6) JORDAN (obstructive sleep apnea) Current Visit: No Status: Chronic (7) Acute blood loss anemia Current Visit: Yes Status: Acute (8) HTN (hypertension) Current Visit: No Status: Chronic Qualifiers: Hypertension type: unspecified Qualified Code(s): I10 - Essential (primary ) hypertension Subjective Interval history: Patient was seen this morning doing well without complaints. Afebrile vital signs stable. Operative extremity: Neurovascularly intact Dressing clean dry and intact Calves nontender Assessment and plan: Continue with postoperative care Objective Vital signs: Vital Signs Temp Pulse Resp BP Pulse Ox 06/19/18 23:24 98.9 F 76 14 96/47 96 06/19/18 20:33 99.1 F 83 14 132/75 99 06/19/18 14:01 98.5 F 81 16 118/73 96 06/19/18 09:45 98.3 F 76 18 114/76 98 06/19/18 07:17 98.5 F 84 16 110/72 99 Intake and Output 06/19/18 06/19/18 06/20/18 15:59 23:59 07:59 Intake Total 360 / 360 60 / 60 Output Total 375 / 375 Balance -15 / -15 60 / 60 Intake: Oral 360 / 360 60 / 60 Output: Urine 375 / 375 Other: Meal Lunch Percent of Meal Consumed 75% # Voids 1 1 1 - Labs CBC & BMP: 06/19/18 00:50 06/19/18 00:50 Labs: Abnormal lab results Hgb 8.9 g/dL (11.5-15.4) L 06/19/18 00:50 Hct 27.7 % (35.3-44.9) L 06/19/18 00:50 Sodium 134 mEq/L (136-145) L 06/19/18 00:50 Glucose 141 mg/dL (70-105) H 06/19/18 00:50 Calcium 8.4 mg/dL (8.6-10.3) L 06/19/18 00:50 - VTE Documentation of Mechanical Device: Venous foot pump, device Consult Discharge Plan - Plan Referrals: Griffin Guajardo MD [Primary Care Provider] -
[2018-06-20] MEDS: Cholecalciferol (D-3) 1,000 UNIT TABLET PO SCH (08:02)
[2018-06-20] MEDS: *HR* OxyCODONE/APAP 5/325 TABLET PO PRN ×3 (08:03→23:47)
[2018-06-20] MEDS: QUININE SULFATE 324 MG PO SCH (11:25)
--- NOTE | 2018-06-20 17:27 | Event Note ---
Date of Encounter: 06/20/18 Time of Encounter: 13:30 PCR- POD# 3 status post right total knee robotic 06/17/18 Dr. Jara PCR - Patient seen at bedside. Resting comfortably in bed. Alert and oriented x 3. Incision clean dry and intact. Dressing intact. No calf tenderness to bilateral lower extremities. neurovascularly intact to bilateral lower extremities Labwork and medications reviewed Vital signs reviewed. Pain control: Adequate - patient with intermittent muscle spasms - tizanidine and Lidoderm for local and systemic pain relief 06/18. These have been helping pain. Participating in PT. PT rehab swing bed. All questions and concerns addressed. Educated on use of incentive spirometer, ambulation, and hydration. Patient educated on post-operative restrictions and care. Addressed: see above. Patient converted to inpt status D/C plan: accepted at [facility] swing bed rehab on Thursday 06/21 Vital Signs Temp Pulse Resp BP Pulse Ox 06/20/18 15:08 99.1 F 98 16 106/60 97 06/20/18 11:14 98.8 F 82 16 110/69 94 06/20/18 06:51 98.8 F 85 18 117/77 93 06/19/18 23:24 98.9 F 76 14 96/47 96 06/19/18 20:33 99.1 F 83 14 132/75 99 Intake and Output 06/20/18 06/20/18 06/20/18 07:59 15:59 23:59 Intake Total 480 / 480 Balance 480 / 480 Intake: Oral 480 / 480 Other: Meal Lunch Percent of Meal Consumed 100% # Voids 1 1
[2018-06-20] MEDS: clonazePAM 0.5 MG TABLET PO SCH (20:55)
[2018-06-20] MEDS: Latanoprost 2.5 ML BOTTLE BOTH EYES SCH (20:57)
[2018-06-21] MEDS: *HR* Enoxaparin 30 MG/0.3 ML SYRINGE SQ SCH (05:25)
[2018-06-21] MEDS: Cholecalciferol (D-3) 1,000 UNIT TABLET PO SCH (08:16)
[2018-06-21] MEDS: *HR* OxyCODONE/APAP 5/325 TABLET PO PRN (08:17)
--- NOTE | 2018-06-21 08:26 | Orthopedics Progress Note ---
Date of Encounter: 06/21/18 Time of Encounter: 08:26 - Assessment and Plan (1) Osteoarthritis of right knee Current Visit: No Status: Chronic Qualifiers: Osteoarthritis type: unspecified Qualified Code(s): M17.11 - Unilateral primary osteoarthritis, right knee (2) Status post total right knee replacement Current Visit: No Status: Acute (3) Osteoporosis Current Visit: No Status: Chronic Qualifiers: Osteoporosis type: unspecified Presence of current pathological fracture: unspecified Qualified Code(s): M81.0 - Age-related osteoporosis without current pathological fracture (4) Diverticulosis Current Visit: No Status: Chronic Qualifiers: Diverticulosis site: unspecified location Diverticulosis bleeding: diverticulosis without bleeding Qualified Code(s): K57.90 - Diverticulosis of intestine, part unspecified, without perforation or abscess without bleeding (5) History of gastric bypass Current Visit: No Status: Chronic (6) JORDAN (obstructive sleep apnea) Current Visit: No Status: Chronic (7) Acute blood loss anemia Current Visit: Yes Status: Acute (8) HTN (hypertension) Current Visit: No Status: Chronic Qualifiers: Hypertension type: unspecified Qualified Code(s): I10 - Essential (primary ) hypertension Subjective Interval history: Patient was seen this morning doing well without complaints. Afebrile vital signs stable. Operative extremity: Neurovascularly intact Dressing clean dry and intact Calves nontender Assessment and plan: Continue with postoperative care Discharged today Objective Vital signs: Vital Signs Temp Pulse Resp BP Pulse Ox 06/21/18 06:28 98.6 F 71 16 109/72 97 06/21/18 00:12 98.9 F 99 16 90/51 95 06/20/18 19:00 98.4 F 82 14 99/64 95 06/20/18 15:08 99.1 F 98 16 106/60 97 06/20/18 11:14 98.8 F 82 16 110/69 94 Intake and Output 06/20/18 06/21/18 06/21/18 23:59 07:59 15:59 Other: # Voids 2 - Labs CBC & BMP: 06/19/18 00:50 06/19/18 00:50 Labs: Abnormal lab results Hgb 8.9 g/dL (11.5-15.4) L 06/19/18 00:50 Hct 27.7 % (35.3-44.9) L 06/19/18 00:50 Sodium 134 mEq/L (136-145) L 06/19/18 00:50 Glucose 141 mg/dL (70-105) H 06/19/18 00:50 Calcium 8.4 mg/dL (8.6-10.3) L 06/19/18 00:50 - VTE Documentation of Mechanical Device: Venous foot pump, device Consult Discharge Plan - Plan Referrals: Griffin Guajardo MD [Primary Care Provider] -
[2018-06-21 10:58] VITALS: BP 100/64
== END 2018-06-21 13:20 | DRG 470 ==
LOC: SAMDAY 12:37 → 3NENU 16:51
PROVIDERS: ADMIT Orthopaedic Surgery; ATTEND Orthopaedic Surgery

== ENCOUNTER 2019-06-04 17:16 | Inpatient (IN) ==
--- NOTE | 2019-06-04 18:38 | Emergency Department Note ---
Disposition Clinical Impression: Pain due to fracture Pelvis fracture, right Qualifiers: Encounter type: initial encounter Pelvic bone location: pubis Sublocation of pubis: other portion of pubis Fracture type: closed Qualified Code(s): S32.591A - Other specified fracture of right pubis, initial encounter for closed fracture Disposition: Admitted As Inpatient Condition: Good Time of Disposition: 19:29 Fall HPI - General Chief Complaint: ED Fall Stated Complaint: Fall Time Seen by Provider: 06/04/19 18:11 Source: patient Nursing Notes Reviewed: Yes Vital Signs Reviewed: Yes - History of Present Illness Pt Subjective Complaint: fall Onset (ago): hour(s) (3) Fall From: standing Fall Witnessed: yes Place Fall Occurred: home Loss of Consciousness: none Prolonged Down Time?: no Symptoms Prior to Fall: none Context: tripped/slipped (pt c/o her Ske[employer] cause her to trib at times) Location of injury - extremities: Right: knee, Bilateral: hip Associated symptoms (after fall): Denies: headache, neck pain, numbness, weakness, shortness of breath, abdominal pain, unable to walk - Related Data Home Medications Medication Instructions Recorded Confirmed Escitalopram [Lexapro] 10 mg PO DAILY 06/17/18 06/04/19 Ferrous Sulfate [Iron] 325 mg PO DAILY 06/17/18 06/04/19 Ibandronate Sodium [Boniva] 150 mg PO QMONTH 06/17/18 06/04/19 Latanoprost [Xalatan] 1 drop LEFT EYE HS 06/17/18 06/04/19 Quinine Sulfate [Qualaquin] 324 mg PO BID PRN 06/17/18 06/04/19 Temazepam [Restoril] 15 mg PO HS 06/17/18 06/04/19 clonazePAM [Klonopin] 0.25 mg PO HS 06/17/18 06/04/19 Loratadine [Claritin] 10 mg PO DAILY 06/04/19 06/04/19 Allergies Allergy/AdvReac Type Severity Reaction Status Date / Time clindamycin AdvReac See Verified 07/14/18 13:51 Comments Penicillins AdvReac See Verified 07/14/18 13:51 Comments Sulfa (Sulfonamide AdvReac See Verified 07/14/18 13:51 Antibiotics) Comments cindamycin AdvReac See Uncoded 06/17/18 13:09 Comments All systems ED: reviewed and negative except as stated. Review of Systems: As Per HPI Constitutional: Denies: fever Eyes: Denies: eye pain Cardiovascular: Denies: chest pain, palpitations Respiratory: Denies: dyspnea Gastrointestinal: Denies: abdominal pain, nausea, vomiting Genitourinary: Denies: dysuria Musculoskeletal: Reports: as per HPI. Denies: back pain, neck pain Integumentary: Denies: rash, abrasion Neurological: Denies: headache Endocrine: Denies: fatigue Hematological/Lymphatic: Denies: lymphadenopathy Allergic/Immunologic: Denies: facial swelling Fall PMH - Past Medical History Medical history: Reports: hypertension Surgical history: Reports: knee replacement, bariatric surgery Psychiatric history: Reports: anxiety, depression - Social History Smoking Status: Never smoker Alcohol use: Reports: none Drug use: Reports: none Physical Exam - General Limitations: no limitations General appearance: alert, in no apparent distress - Head Head exam: atraumatic, normocephalic - Eye Eye exam: Present: PERRL, EOMI - ENT ENT exam: normal exam, normal oropharynx, mucous membranes moist - Chest Chest inspection: Present: normal inspection, symmetric chest wall rise - Respiratory Respiratory exam: Present: normal lung sounds bilaterally. Absent: respiratory distress, wheezes - Cardiovascular Cardiovascular exam: Present: regular rate, normal rhythm - Extremities Exam Extremities exam: Present: normal capillary refill - Expanded Lower Extremity Exam Hip/Pelvis exam: Present: tenderness (right). Absent: full ROM (limited due to pain), swelling, ecchymosis, deformity, external rotation, internal rotation Upper leg exam: Present: full ROM. Absent: tenderness, swelling Knee exam: Present: normal inspection, full ROM. Absent: tenderness Lower leg exam: Present: normal inspection, full ROM. Absent: tenderness Ankle exam: Present: normal inspection, full ROM. Absent: tenderness Foot/toe exam: Present: normal inspection, full ROM. Absent: tenderness, tenderness at base of 5th metatarsal Neurovascular/Tendon exam: Present: normal capillary refill. Absent: pulse deficit, motor deficit, sensory deficit Gait: not tested/not observed - Back Exam Back exam: Present: normal inspection, full ROM. Absent: tenderness, CVA tenderness (R), CVA tenderness (L), muscle spasm - Neurological Exam Neurological exam: Present: alert, oriented X3 - Psychiatric Psychiatric exam: Present: normal affect, normal mood - Skin Skin exam: Present: warm, dry, intact, normal color. 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 She denies any head injury neck pain back pain. She has been able to ambulate. She mentions a history of osteoporosis. Denies any loss of consciousness chest pain shortness of breath, leg swelling, bowel or bladder symptoms. Her vitals within normal limits. Initial x-rays were ordered by dayshift provider. Due to shift change I took over care of this patient. Patient seen and examined. she has declined analgesics. Images pending. PmHx: anemia, osteoporosis, HTN PsHx: gastric bypass, r knee arthroplasty - Reevaluation(s) Reevaluation #1: Patient was discussed with attending Dr. Mata who also had face time patient, who agreed with workup and admission. At this time we are recommending admission for pain control, and OT PT consult. This was discussed with patient who is in agreement. Pain controls also discussed with patient, she has historically been very sensitive to narcotic medications and would rather not but is agreeable to sub dissociative dose ketamine. Hospitalist has been paged. Time: 19:11 Reevaluation #2: Patient was discussed with hospitalist Dr. Grider, who accepted patient and requested baseline labs including PTT and INR. Time: 19:27 - Consultations Consultation #1: On-call orthopedic provider was paged and I discussed patient with Dr. Lozano. He agreed to consult, and mentioned he would see patient either tomorrow morning, or possibly tonight after a surgical case. Time: 19:58 Vital Signs Temperature 98.0 F 06/04/19 17:17 Pulse Rate 74 06/04/19 17:17 Respiratory Rate 16 06/04/19 17:17 Blood Pressure 128/60 06/04/19 17:17 O2 Sat by Pulse Oximetry 99 06/04/19 17:17 Temperature 98.8 F 06/05/19 03:33 Pulse Rate 69 06/05/19 03:33 Respiratory Rate 17 06/05/19 03:33 Blood Pressure 113/67 06/05/19 03:33 O2 Sat by Pulse Oximetry 96 06/05/19 03:33 Oxygen Delivery Oxygen Delivery Room Air Fall - MDM Narrative Medical decision making narrative: Knee X-Ray 06/04/19 17:59 IMPRESSION: Stable right knee post arthroplasty. No acute osseous abnormality. D/ / Jamil La MD / Jmail La MD Interpreting Provider: Jamil La MD INATION: ONE XRAY VIEW OF THE PELVIS AND TWO XRAY VIEWS OF EACH OF THE BILATERAL HIPS 06/04/2019 6:24 pm COMPARISON: None. HISTORY: ORDERING SYSTEM PROVIDED HISTORY: bilateral hips pain FINDINGS: Degenerative changes are present in the lower lumbar spine. Bones are diffusely demineralized. There is mild degenerative osteoarthritis in both hips with joint space narrowing and degenerative spurring. Sacroiliac joints are unremarkable. Nondisplaced fractures of the right pubic symphysis and right inferior pubic ramus suspected. Mild bilateral hip degenerative osteoarthritis. Suspect acute nondisplaced fractures of the right pubic symphysis and right inferior pubic ramus. Clinical correlation is recommended. D/ / Elia Key MD / Elia Key MD Interpreting Provider: Elia Key MD - Lab Data Result diagrams: 06/05/19 01:07 06/05/19 01:07 Lab Results 06/04/19 06/04/19 06/04/19 Range/Units 19:20 19:20 19:20 WBC 11.8 H (4.3-11.1) K/mcL RBC 4.46 (3.82-4.97) M/mcL Hgb 13.5 (11.5-15.4) g/dL Hct 41.6 (35.3-44.9) % MCV 93.3 (83.0-100.0) fL MCH 30.3 (28.0-33.3) pg MCHC 32.5 (31.6-35.5) g/dL RDW 12.6 (11.5-14.5) % Plt Count 185 (140-400) K/mcL MPV 10.4 (9.4-12.4) fL Immature Gran % 0.3 (0-4) % Seg Neutrophils % 88.6 % Lymphocytes % 5.5 % Monocytes % 5.0 % Eosinophils % 0.3 % Basophils % 0.3 % Neutrophils # 10.4 H (1.6-8.9) K/mcL Lymphocytes # 0.7 (0.6-4.6) K/mcL Monocytes # 0.6 (0.0-1.3) K/mcL Eosinophils # 0.0 (0.0-0.6) K/mcL Basophils # 0.0 (0.0-0.2) K/mcL PT 11.3 (9.4-12.1) Seconds INR 1.0 APTT 44.6 H (26.0-36.0) Seconds Sodium 138 (136-145) mEq/L Potassium 4.3 (3.5-5.1) mEq/L Chloride 106 (98-107) mEq/L Carbon Dioxide 23 (23-29) mEq/L BUN 28 H (8-23) mg/dL Creatinine 1.03 (0.60-1.20) mg/dL Est GFR ( Amer) > 60 (> 60) Est GFR (Non-Af Amer) 53 L (> 60) BUN/Creatinine Ratio 27 H (6-26) Glucose 111 H (70-105) mg/dL Calculated Osmolality 292 (280-300) Calcium 9.5 (8.6-10.3) mg/dL - Radiology Data Radiology results reviewed: Yes I reviewed the patient's radiology results.
[2019-06-04] MEDS ORDERED: Ketamine *HR* 15 MG in 0.9 % Sodium Chloride 100 ML IVPB ONE (19:07)
[2019-06-04 19:48] LABS: Basophils % 0.3 %; Eosinophils % 0.3 %; Hematocrit 41.6 % (35.3-44.9); Hemoglobin 13.5 g/dL (11.5-15.4); Immature Granulocytes % 0.3 % (0-4); Lymphocytes # 0.7 K/mcL (0.6-4.6); Lymphocytes % 5.5 %; Mean Corpuscular HGB Conc 32.5 g/dL (31.6-35.5); Mean Corpuscular Hemoglobin 30.3 pg (28.0-33.3); Mean Corpuscular Volume 93.3 fL (83.0-100.0); Mean Platelet Volume 10.4 fL (9.4-12.4); Monocytes # 0.6 K/mcL (0.0-1.3); Neutrophils # 10.4 K/mcL (1.6-8.9); Platelet Count 185 K/mcL (140-400); Red Blood Count 4.46 M/mcL (3.82-4.97); Red Cell Distribution Width 12.6 % (11.5-14.5); Segmented Neutrophils % 88.6 %; White Blood Count 11.8 K/mcL (4.3-11.1)
[2019-06-04 20:02] LABS: Prothrombin Time 11.3 Seconds (9.4-12.1)
[2019-06-04 20:04] LABS: Activated Partial Thrombo Time 44.6 Seconds (26.0-36.0)
[2019-06-04 20:07] LABS: BUN/Creatinine Ratio 27 (6-26); Blood Urea Nitrogen 28 mg/dL (8-23); Calcium 9.5 mg/dL (8.6-10.3); Carbon Dioxide 23 mEq/L (23-29); Chloride 106 mEq/L (98-107); Glucose 111 mg/dL (70-105); Osmolality,Calculated 292 (280-300); Potassium 4.3 mEq/L (3.5-5.1); Sodium 138 mEq/L (136-145); eGFR For African Americans > 60 (> 60); eGFR For Non-African Americans 53 (> 60)
--- NOTE | 2019-06-04 21:36 | Orthopedic Consult Note ---
Date of Encounter: 06/04/19 Time of Encounter: 21:33 History of Present Illness Chief complaint: Right hip pain HPI: Ms. Starr is a 69 year old female who fell earlier today when her foot caught and she stumbled and fell striking her right hip area. She had assistance to get up from the ground. She was able to ambulate but had severe pain in and about the right groin and hip area. She was ultimately brought to the emergency room where x-rays taken revealed no evidence of a hip fracture but the patient did have pubic ramus/pubic symphysis fractures. Patient denies any other injuries. Denies vertigo, blackouts etc. Reviewed the patient's emergency room dictation and have reviewed x-rays of the right hip and the right knee. Physical examination is a pleasant 69-year-old woman in minimal distress while lying in the emergency room on a stretcher. She does have pain with attempts at examination of the right hip. Right knee is unremarkable with well-healed midline incision. X-rays of the right knee reveal a stable total knee arthroplasty prosthesis. X-rays of the right hip reveal mild to moderate arthritic changes without evidence of acute fracture. There is a fracture involving the medial symphysis pubis and a fracture extending into the inferior pubic ramus. Impression: As fractures right pubic symphysis and inferior pubic ramus Recommendation: These are stable fractures that do not require any intervention. Pain management initially is important with mobilization of the patient is sent as possible with weightbearing as tolerated. Discussed with the patient the high propensity for constipation related to the relative inactivity, the intrapelvic pain and the concerns with narcotics creating a cranial of risk factors. The patient understands and agrees with the care as outlined. We will need follow-up with me in about 4 weeks after discharge. Thank you very much for allowing me to seen care for Mrs. Starr. Sincerely, Danny Lozano,DO Past Med Surg Social Fam HX - Past Medical History Medical history: hypertension Additional medical history: CKDII, Sleep apnea Psychiatric history: anxiety, depression - Past Surgical History Surgical History: knee replacement, bariatric surgery Additional surgical history: right total knee; gastric bypass; left knee - Social History Smoking Status: Never smoker Smokeless Tobacco Status: No Alcohol use: none Drug use: none - Family History Mother Hx Family Cardiac Disorders: No Hx Family Respiratory Disorders: No Hx Family Cancer: Yes (Utrine with mets) Hx Family GI Disorders: No Hx Family Endocrine Disorder: No Hx Family Neuromuscular Disorders: No Hx Family Neurologic Disorders: No Hx Family HEENT Disorders: No Hx Family Autoimmune Disorders: No Medications and Allergies Escitalopram [Lexapro] 10 mg PO DAILY 06/17/18 [History] Ferrous Sulfate [Iron] 325 mg PO DAILY 06/17/18 [History] Ibandronate Sodium [Boniva] 150 mg PO QMONTH 06/17/18 [History] Latanoprost [Xalatan] 1 drop LEFT EYE HS 06/17/18 [History] Quinine Sulfate [Qualaquin] 324 mg PO BID PRN 06/17/18 [History] Temazepam [Restoril] 15 mg PO HS 06/17/18 [History] clonazePAM [Klonopin] 0.25 mg PO HS 06/17/18 [History] Loratadine [Claritin] 10 mg PO DAILY 06/04/19 [History] Allergy/AdvReac Type Severity Reaction Status Date / Time clindamycin AdvReac See Verified 07/14/18 13:51 Comments Penicillins AdvReac See Verified 07/14/18 13:51 Comments Sulfa (Sulfonamide AdvReac See Verified 07/14/18 13:51 Antibiotics) Comments cindamycin AdvReac See Uncoded 06/17/18 13:09 Comments All Systems Reviewed: The remainder of the systems were reviewed and are negative Physical Exam - Constitutional Vitals: Temp Pulse Resp BP Pulse Ox 98.0 F 62 16 128/53 99 06/04/19 17:43 06/04/19 19:38 06/04/19 21:27 06/04/19 21:27 06/04/19 19:38 Results - Labs Result Diagrams: 06/04/19 19:20 06/04/19 19:20 Labs: Abnormal lab results WBC 11.8 K/mcL (4.3-11.1) H 06/04/19 19:20 Neutrophils # 10.4 K/mcL (1.6-8.9) H 06/04/19 19:20 APTT 44.6 Seconds (26.0-36.0) H 06/04/19 19:20 BUN 28 mg/dL (8-23) H 06/04/19 19:20 Est GFR (Non-Af Amer) 53 (> 60) L 06/04/19 19:20 BUN/Creatinine Ratio 27 (6-26) H 06/04/19 19:20 Glucose 111 mg/dL (70-105) H 06/04/19 19:20 H & H 06/04/19 Range/Units 19:20 Hgb 13.5 (11.5-15.4) g/dL Hct 41.6 (35.3-44.9) % All other labs normal. - Diagnostic results Hip AP/Lateral x-ray: image reviewed Consult Discharge Plan - Plan Referrals: Griffin Guajardo MD [Primary Care Provider] -
[2019-06-04] MEDS ORDERED: Naloxone 0.4 MG/ML INJ IVP PRN (23:42)
[2019-06-05] MEDS ORDERED: *HR* Promethazine 25 MG/ML VIAL IVP PRN (00:24)
[2019-06-05] MEDS ORDERED: Acetaminophen 325 MG TABLET PO PRN (00:24)
[2019-06-05] MEDS ORDERED: traMADol 50 MG TABLET PO PRN (00:25)
[2019-06-05] MEDS: Temazepam 15 MG CAPSULE PO SCH ×2 (00:48→22:00)
[2019-06-05] MEDS: clonazePAM 0.5 MG TABLET PO SCH ×3 (00:49→21:59)
--- NOTE | 2019-06-05 01:21 | Internal Med History&Physical ---
Date of Encounter: 06/04/19 Time of Encounter: 23:00 Internal Medicine - H&P: HPI Chief complaint: Pelvic/Leg pain Admitted From: Emergency Dept Plans for Post Hospital Care: Home History of present illness: Ms. Starr is a 69 year old female w/PMH of osteoporosis, arthritis, glaucoma, seasonal allergies, anxiety, and depression presents from the ED w/CC of pelvic pain sustained after a fall while walking laps at an exercise center. Pt. states that the front of her shoe caught and caused her to fall forward. She states she twisted to avoid falling on her face and hit her right hip and knee. This occurred at approximately 14:30 this afternoon. Pt. was helped up and was able to walk to her car but was unable to walk after getting home w/o severe pain. Alleviating factor for pain: laying still. Aggravating factor: movement. Pt. reports having both knees replaced and had gastric bypass in 2002. Pt. denies recent illness, fever, chills, nausea, vomiting, headache, striking her head, LOC, changes in vision, CP, SOB, chest congestion, cough, abdominal pain, diarrhea, constipation, dizziness, lightheadedness, numbness, tingling, pre- syncope, or syncope. Past Med Surg Social Fam HX - Past Medical History Source: patient, old records reviewed Medical history: arthritis, glaucoma Additional medical history: glaucoma in left eye, seasonal allergies, osteoporosis Psychiatric history: anxiety, depression - Past Surgical History Surgical History: knee replacement, bariatric surgery Additional surgical history: right total knee; gastric bypass; left knee - Social History Smoking Status: Never smoker Smokeless Tobacco Status: No Alcohol use: none Drug use: none Current living situation: Home - Independent Activity Level: Independent ambulation, Very active Recent Out of Country Travel Within the Last 8 Weeks: No Exposure or Possible Exposure to Illness During Travel: No - Family History Mother Race: Family Member Ethnicity: Non- Living Status: Age at : 61 Cause of : Cancer Hx Family Cancer: Yes (Uterine cancer w/mets to the brain and lungs) Father Race: Family Member Ethnicity: Non- Living Status: Age at : 59 Cause of : Colon cancer Hx Family Cancer: Yes (Metastatic colon cancer) Brother Race: Family Member Ethnicity: Non- Living Status: Age at : 81 Cause of : Organ shutdown Internal Medicine - H&P: Meds Escitalopram [Lexapro] 10 mg PO DAILY 06/17/18 [History] Ferrous Sulfate [Iron] 325 mg PO DAILY 06/17/18 [History] Ibandronate Sodium [Boniva] 150 mg PO QMONTH 06/17/18 [History] Latanoprost [Xalatan] 1 drop LEFT EYE HS 06/17/18 [History] Quinine Sulfate [Qualaquin] 324 mg PO BID PRN 06/17/18 [History] Temazepam [Restoril] 15 mg PO HS 06/17/18 [History] clonazePAM [Klonopin] 0.25 mg PO HS 06/17/18 [History] Loratadine [Claritin] 10 mg PO DAILY 06/04/19 [History] Allergy/AdvReac Type Severity Reaction Status Date / Time clindamycin AdvReac See Verified 07/14/18 13:51 Comments Penicillins AdvReac See Verified 07/14/18 13:51 Comments Sulfa (Sulfonamide AdvReac See Verified 07/14/18 13:51 Antibiotics) Comments cindamycin AdvReac See Uncoded 06/17/18 13:09 Comments All Systems PM: A 10-system review of systems was performed and is negative for pertinent findings except as documented above in the HPI. - Constitutional Constitutional: as per HPI, no chills, no fever(s), no night sweats - EENT Eyes: as per HPI, no change in vision, no discharge, no pain, no photophobia Ears: as per HPI, no ear discharge, no ear pain, no tinnitus Nose, mouth and throat: as per HPI, no dysphagia, no nasal discharge, no neck pain, no sore throat - Breasts Breasts: as per HPI - Cardiovascular Cardiovascular ROS IM: no chest pain, no diaphoresis, no dyspnea, no lightheadedness, no palpitations, no syncope - Respiratory Respiratory: no cough, no dyspnea, no wheezing, no excessive phlegm production - Gastrointestinal Gastrointestinal: no abdominal pain, no diarrhea, no hematemesis, no hematochezia, no melena, no nausea, no vomiting - Genitourinary Genitourinary: no change in urinary stream, no dysuria, no flank pain, no hematuria Menstruation: as per HPI - Musculoskeletal Musculoskeletal ROS IM: as per HPI, other (Pelvic pain), no numbness, no tingling - Integumentary Integumentary IM: no rash, no unusual bruising - Neurological Neurological ROS: no confusion, no convulsions, no focal weakness, no numbness, no tingling, no tremor(s) - Psychiatric Psychiatric: as per HPI - Endocrine Endocrine IM: as per HPI - Hematologic/Lymphatic Hematologic/Lymphatic: no easy bruising - Allergic/Immunologic Allergic/Immunologic: as per HPI - Constitutional Vitals: Temp Pulse Resp BP Pulse Ox 98.9 F 73 16 135/69 99 06/04/19 22:04 06/04/19 22:04 06/04/19 22:04 06/04/19 22:04 06/04/19 22:04 General appearance: Present: cooperative, A&O X 3, pleasant, no acute distress, answers questions appropriately Exam: Patient examined at bedside. Pt. reports no pain as long as she is laying still. Pain is present w/movement. Pt. requests no opioids. Bed rest w/bedside commode. Pt. denies any other complaints or symptoms on exam. VS: 98.9F temp, HR 73, RR 16, BP 135/69, SPO2 99% on room air. - Head Head exam: Present: atraumatic, normocephalic - Eye Eye exam: Present: PERRL, conjuntiva pink, sclera anicteric Pupils: Present: PERRL - ENT ENT exam: Present: normal exam - Neck Neck exam general surgery: Present: supple, trachea midline. Absent: lymphadenopathy - Respiratory Respiratory exam: Present: CTAB. Absent: accessory muscle use, rales, rhonchi, wheezes - Cardiovascular Cardiovascular exam: Present: RRR, +S1, +S2. Absent: diastolic murmur, gallop, rubs, systolic murmur - GI/Abdominal GI/Abdominal exam: Present: normal bowel sounds, soft, no peritoneal signs. Absent: distended, tenderness - Rectal Rectal exam: Present: deferred - Additional comments: exam deferred. - Extremities Exam Extremities exam: Present: warm, radial pulses palpable and symmetrical. Absent: calf tenderness, cyanotic, pedal edema - Back Exam Back exam: Present: normal inspection - Neurological Exam Neurological exam: Present: alert, CN II-XII intact, oriented X3, no focal deficits. Absent: pronater drift, facial droop, speech deficit - Psychiatric Psychiatric exam: Present: normal affect, normal mood - Skin Skin exam: Present: dry, intact Internal Med - H&P Results - Labs CBC & Chem 7: 06/05/19 01:07 06/04/19 19:20 Labs: Short CBC 06/04/19 Range/Units 19:20 WBC 11.8 H (4.3-11.1) K/mcL Hgb 13.5 (11.5-15.4) g/dL Hct 41.6 (35.3-44.9) % Plt Count 185 (140-400) K/mcL Neutrophils # 10.4 H (1.6-8.9) K/mcL BMP 06/04/19 19:20 Sodium 138 Potassium 4.3 Chloride 106 Carbon Dioxide 23 BUN 28 H Creatinine 1.03 Glucose 111 H Calcium 9.5 - Impressions ITS Impressions Knee X-Ray 06/04/19 17:59 IMPRESSION: Stable right knee post arthroplasty. No acute osseous abnormality. D/ / Jamil La MD / Jamil La MD Interpreting Provider: Jamil La MD - Diagnostic Studies Other Images Additional comments: Impressions Knee X-Ray 06/04/19 17:59 IMPRESSION: Stable right knee post arthroplasty. No acute osseous abnormality. D/ / Jamil La MD / Jamil La MD Interpreting Provider: Jamil La MD INATION: ONE XRAY VIEW OF THE PELVIS AND TWO XRAY VIEWS OF EACH OF THE BILATERAL HIPS 06/04/2019 6:24 pm COMPARISON: None. HISTORY: ORDERING SYSTEM PROVIDED HISTORY: bilateral hips pain FINDINGS: Degenerative changes are present in the lower lumbar spine. Bones are diffusely demineralized. There is mild degenerative osteoarthritis in both hips with joint space narrowing and degenerative spurring. Sacroiliac joints are unremarkable. Nondisplaced fractures of the right pubic symphysis and right inferior pubic ramus suspected. Mild bilateral hip degenerative osteoarthritis. Suspect acute nondisplaced fractures of the right pubic symphysis and right inferior pubic ramus. Clinical correlation is recommended. D/ / Elia Key MD / Elia Key MD Interpreting Provider: Elia Key MD - Assessment and Plan (1) Pelvis fracture, right Current Visit: Yes Status: Acute Assessment and plan: Acute pelvic fracture sustained after a fall while walking laps at an exercise center. Pt. states that the front of her shoe caught and caused her to fall forward. She states she twisted to avoid falling on her face and hit her right hip and knee. This occurred at approximately 14:30 this afternoon. Pt. was helped up and was able to walk to her car but was unable to walk after getting home w/o severe pain. Alleviating factor for pain: laying still. Aggravating factor: movement. Dr. Lozano consulted in the ED w/recommendation for no surgical intervention, but instead pain management and PT/OT therapy. As always, I appreciate the consult and recommendations. Pt. requests that no opioid pain medications be used in her treatment as she does not like the way they make her feel or the constipation they can cause. Tylenol and Ultram ordered for mild to moderate pain. PT/OT consults ordered. SW consult to assess for possible home needs. Bed rest w/bedside commode. Will order Domínguez for immobility d/t trauma or sx if pt. unable to use bedside commode. Pt. is moderate risk for further morbidity and complications d/t current pelvic fracture from fall, hx of osteoporosis and arthritis, hx of anemia, advanced age, and risk factors. Ob servation. Qualifiers: Encounter type: initial encounter Pelvic bone location: pubis Sublocation of pubis: other portion of pubis Fracture type: closed Qualified Code(s): S32.591A - Other specified fracture of right pubis, initial encounter for closed fracture (2) Arthritis Current Visit: Yes Status: Chronic Assessment and plan: Hx of chronic arthritis. Stair-step pain medications that are non-opioid for pain mgmt. (3) Glaucoma of left eye Current Visit: Yes Status: Chronic Assessment and plan: Hx of chronic glaucoma of the left eye. Continue pts. Xalatan drops in left eye. Qualifiers: Glaucoma type: unspecified Qualified Code(s): H40.9 - Unspecified glaucoma (4) Seasonal allergies Current Visit: Yes Status: Chronic Assessment and plan: Hx of chronic seasonal allergies. Continue pts. Claritin. (5) Osteoporosis Current Visit: Yes Status: Chronic Assessment and plan: Hx of chronic osteoporosis. Pt. to continue her [id number] Boniva. Qualifiers: Osteoporosis type: unspecified Presence of current pathological fracture: unspecified Qualified Code(s): M81.0 - Age-related osteoporosis without current pathological fracture (6) Anxiety and depression Current Visit: Yes Status: Chronic Assessment and plan: Hx of chronic anxiety and depression. Continue pts. Lexapro and Klonopin. (7) DVT prophylaxis Current Visit: Yes Status: Acute Assessment and plan: Bilateral foot pumps for DVT prophylaxis. - Time Spent With Patient Total time spent is greater than 50% in coordination of care (as documented) at patient's floor/unit and/or counseling patient: Greater than 35 minutes
[2019-06-05 01:46] LABS: Hematocrit 39.7 % (35.3-44.9); Hemoglobin 12.6 g/dL (11.5-15.4); Mean Corpuscular HGB Conc 31.7 g/dL (31.6-35.5); Mean Corpuscular Hemoglobin 30.7 pg (28.0-33.3); Mean Corpuscular Volume 96.6 fL (83.0-100.0); Mean Platelet Volume 10.3 fL (9.4-12.4); Platelet Count 179 K/mcL (140-400); Red Blood Count 4.11 M/mcL (3.82-4.97); Red Cell Distribution Width 12.6 % (11.5-14.5); White Blood Count 6.5 K/mcL (4.3-11.1)
[2019-06-05] MEDS: Latanoprost 2.5 ML BOTTLE LEFT EYE SCH ×2 (01:53→22:00)
[2019-06-05 02:02] LABS: BUN/Creatinine Ratio 27 (6-26); Blood Urea Nitrogen 26 mg/dL (8-23); Calcium 8.7 mg/dL (8.6-10.3); Carbon Dioxide 25 mEq/L (23-29); Chloride 108 mEq/L (98-107); Chol/HDL Ratio 2.4 (0-4.9); Cholesterol 163 mg/dL (< 200); Glucose 214 mg/dL (70-105); HDL Cholesterol 68 mg/dL (40-59); LDL Cholesterol,Calculated 85 mg/dL (0-99); Magnesium 1.8 mg/dL (1.6-2.6); Osmolality,Calculated 301 (280-300); Potassium 3.7 mEq/L (3.5-5.1); Sodium 140 mEq/L (136-145); Triglycerides 52 mg/dL (< 150); eGFR For African Americans > 60 (> 60); eGFR For Non-African Americans 56 (> 60)
[2019-06-05] MEDS: Loratadine 10 MG TABLET PO SCH (08:19)
--- NOTE | 2019-06-05 10:01 | Event Note ---
Date of Encounter: 06/05/19
[2019-06-05] MEDS ORDERED: QUININE SULFATE 324 MG PO PRN (14:30)
--- NOTE | 2019-06-05 14:39 | Internal Med Progress Note ---
<Kelly Pineda I - Last Filed: 06/05/19 17:02> Hospitalist Progress Note - Encounter Date of Encounter: 06/05/19 Time of Encounter: 09:30 - Subjective Interval History: 69-year-old female with past medical history of osteoporosis ,anxiety and depression presented to ED after she fell down and broke her HIP today patient was seen and examined she was doing well she is able to make urine , she passed gas but no bowel motion yet . She denies pain while laying still , pain is more when she walks , no fever or fracture site skin discoloration . - Exam Vitals: Temp Pulse Resp BP Pulse Ox 98.4 F 99 16 90/57 95 06/05/19 11:01 06/05/19 11:01 06/05/19 11:01 06/05/19 11:01 06/05/19 11:01 Exam: General: no acute distress , A&AX3 HEENT: Atraumatic, Normocephaly, sclera unicteric Neck: supple , Full ROM , trachea midline Cardiac: RRR , S1+. S2+ Lungs: Normal Breath Sounds Bilaterally, No Wheeze, Rales, Rhonchi Abdomen: Soft, Non-Tender ,no organomegaly , +bowel sounds Musculoskeletal : no swelling echymosis or deformity in hip joint and bilateral knee joints , ROM decraesed , no lower extrimity deficit or sensory loss Extremities: No Clubbing, No Cyanosis,or edema , Normal Pulses Skin : intact , Normal color Psychiatric : normal affect, normal mood Nuero : alert, normal gait, oriented X3 - Assessment and Plan (1) Pelvis fracture, right Current Visit: Yes Status: Acute Assessment and Plan: Patient presented with pelvic pain especially during walking after she fell down yesterday -Knee X-Ray 04/06 Stable right knee post arthroplasty. No acute osseous abnormality. -pelvic X-rays 04/06 of the right hip reveal fractures right pubic symphysis and inferior pubic ramus -orthopedic consult: stable fractures that do not require any intervention. Pain management patient is doing well , refused narcotics plan to discharge her tomorrow with wheeled walker (2) Anxiety and depression Current Visit: Yes Status: Chronic Assessment and Plan: This is a chronic condition. Continue home medication Lexapro and Klonopin. (3) History of gastric bypass Current Visit: No Status: Chronic Assessment and Plan: Patient has history of gastric bypass surgery since 2002, she is stable her current weight is 155 pounds - Time Spent with Patient Total time spent is greater than 50% in coordination of care (as documented) at patient's floor/unit and/or counseling patient: Internal Medicine: Result - Labs CBC & Chem 7: 06/05/19 01:07 06/05/19 01:07 Labs: Short CBC 06/04/19 06/05/19 Range/Units 19:20 01:07 WBC 11.8 H 6.5 (4.3-11.1) K/mcL Hgb 13.5 12.6 (11.5-15.4) g/dL Hct 41.6 39.7 (35.3-44.9) % Plt Count 185 179 (140-400) K/mcL Neutrophils # 10.4 H (1.6-8.9) K/mcL BMP 06/04/19 06/05/19 19:20 01:07 Sodium 138 140 Potassium 4.3 3.7 Chloride 106 108 H Carbon Dioxide 23 25 BUN 28 H 26 H Creatinine 1.03 0.98 Glucose 111 H 214 H Calcium 9.5 8.7 - ABG Interpretation ABG results: PT/INR, D-dimer PT 11.3 Seconds (9.4-12.1) 06/04/19 19:20 - Impressions Impressions Knee X-Ray 06/04/19 17:59 IMPRESSION: Stable right knee post arthroplasty. No acute osseous abnormality. D/ / Jamil La MD / Jamil La MD Interpreting Provider: Jamil La MD Consult Discharge Plan - Plan Referrals: Griffin Guajardo MD [Primary Care Provider] - <Raoul Winters - Last Filed: 06/05/19 17:41> Hospitalist Progress Note - Encounter Date of Encounter: 06/05/19 - Subjective Interval History: Pt has broken her pubic ramus not hip. - Exam Vitals: Temp Pulse Resp BP Pulse Ox 98.5 F 89 16 98/57 97 06/05/19 14:00 06/05/19 14:00 06/05/19 14:00 06/05/19 14:00 06/05/19 14:00 - Assessment and Plan (1) Osteoporosis Current Visit: Yes Status: Chronic (2) Pelvis fracture, right Current Visit: Yes Status: Acute (3) Arthritis Current Visit: Yes Status: Chronic (4) Glaucoma of left eye Current Visit: Yes Status: Suspected (5) Seasonal allergies Current Visit: Yes Status: Chronic (6) Anxiety and depression Current Visit: Yes Status: Chronic (7) DVT prophylaxis Current Visit: Yes Status: Acute (8) HTN (hypertension) Current Visit: No Status: Chronic (9) JORDAN (obstructive sleep apnea) Current Visit: No Status: Chronic - Time Spent with Patient Total time spent is greater than 50% in coordination of care (as documented) at patient's floor/unit and/or counseling patient: Internal Medicine: Result - Labs CBC & Chem 7: 06/05/19 01:07 06/05/19 01:07 Labs: Short CBC 06/04/19 06/05/19 Range/Units 19:20 01:07 WBC 11.8 H 6.5 (4.3-11.1) K/mcL Hgb 13.5 12.6 (11.5-15.4) g/dL Hct 41.6 39.7 (35.3-44.9) % Plt Count 185 179 (140-400) K/mcL Neutrophils # 10.4 H (1.6-8.9) K/mcL BMP 06/04/19 06/05/19 19:20 01:07 Sodium 138 140 Potassium 4.3 3.7 Chloride 106 108 H Carbon Dioxide 23 25 BUN 28 H 26 H Creatinine 1.03 0.98 Glucose 111 H 214 H Calcium 9.5 8.7 - ABG Interpretation ABG results: PT/INR, D-dimer PT 11.3 Seconds (9.4-12.1) 06/04/19 19:20 - Impressions Impressions Knee X-Ray 06/04/19 17:59 IMPRESSION: Stable right knee post arthroplasty. No acute osseous abnormality. D/ / Jamil La MD / Jamil La MD Interpreting Provider: Jamil La MD - Attending Attestation I examined this patient and my medical decision-making was reviewed with the Resident Physician on 06/05/19. I agree with the documented findings, disposition and treatment plan as described except to the extent set forth below. Ms Starr is currently in observation for acute pubic fracture. She remains moderate to high risk due to potential for worsening clinical status. Ms Starr is doing OK. Has pain with movement. No fever or chills. No CP. Exam: Alert. Comfortable. Mucus membranes dry. NC. Neck supple. Heart not tachy. No wheeze. Abd soft. No edema. Plan: Pain control. Therapy eval. <Kelly Pineda I - Last Filed: 06/05/19 17:02> (1) Pelvis fracture, right Qualifiers: Encounter type: initial encounter Pelvic bone location: pubis Sublocation of pubis: other portion of pubis Fracture type: closed Qualified Code(s): S32.591A - Other specified fracture of right pubis, initial encounter for closed fracture <Raoul Winters A - Last Filed: 06/05/19 17:41> (1) Osteoporosis Qualifiers: Osteoporosis type: age-related Presence of current pathological fracture: without current pathological fracture Qualified Code(s): M81.0 - Age-related osteoporosis without current pathological fracture (2) Pelvis fracture, right Qualifiers: Encounter type: subsequent encounter Pelvic bone location: pubis Sublocation of pubis: other portion of pubis Fracture type: closed Fracture healing: with routine healing Qualified Code(s): S32.591D - Other specified fracture of right pubis, subsequent encounter for fracture with routine healing (4) Glaucoma of left eye Qualifiers: Glaucoma type: unspecified Qualified Code(s): H40.9 - Unspecified glaucoma (8) HTN (hypertension) Qualifiers: Hypertension type: essential hypertension Qualified Code(s): I10 - Essential (primary) hypertension
[2019-06-06 02:19] LABS: Hematocrit 37.2 % (35.3-44.9); Hemoglobin 11.9 g/dL (11.5-15.4); Mean Corpuscular Hemoglobin 30.5 pg (28.0-33.3); Mean Corpuscular Volume 95.4 fL (83.0-100.0); Mean Platelet Volume 10.1 fL (9.4-12.4); Platelet Count 161 K/mcL (140-400); Red Cell Distribution Width 12.7 % (11.5-14.5); White Blood Count 5.5 K/mcL (4.3-11.1)
[2019-06-06 02:38] LABS: BUN/Creatinine Ratio 24 (6-26); Blood Urea Nitrogen 22 mg/dL (8-23); Calcium 8.3 mg/dL (8.6-10.3); Carbon Dioxide 26 mEq/L (23-29); Chloride 107 mEq/L (98-107); Glucose 102 mg/dL (70-105); Osmolality,Calculated 290 (280-300); Potassium 4.1 mEq/L (3.5-5.1); Sodium 138 mEq/L (136-145); eGFR For African Americans > 60 (> 60); eGFR For Non-African Americans 60 (> 60)
--- NOTE | 2019-06-06 07:00 | Discharge Summary ---
<Raoul Winters - Last Filed: 06/06/19 17:00> Orders not resulted at time of discharge: Pending orders 06/07/19 04:00 Basic Metabolic Panel AM 0400 Complete Blood Count w/o Diff [HEME] AM 0400 Date of Encounter: 06/06/19 - Discharge Diagnosis (1) Osteoporosis Priority: Secondary Status: Chronic Qualifiers: Osteoporosis type: age-related Presence of current pathological fracture: without current pathological fracture Qualified Code(s): M81.0 - Age-related osteoporosis without current pathological fracture (2) Pelvis fracture, right Status: Acute Qualifiers: Encounter type: subsequent encounter Pelvic bone location: pubis Subloc ation of pubis: other portion of pubis Fracture type: closed Fracture healing: with routine healing Qualified Code(s): S32.591D - Other specified fracture of right pubis, subsequent encounter for fracture with routine healing (3) Arthritis Priority: Secondary Status: Chronic (4) Glaucoma of left eye Priority: Secondary Status: Suspected Qualifiers: Glaucoma type: unspecified Qualified Code(s): H40.9 - Unspecified glaucoma (5) Seasonal allergies Priority: Secondary Status: Chronic (6) Anxiety and depression Status: Chronic (7) HTN (hypertension) Priority: Secondary Status: Chronic Qualifiers: Hypertension type: essential hypertension Qualified Code(s): I10 - E ssential (primary) hypertension (8) JORDAN (obstructive sleep apnea) Priority: Secondary Status: Chronic Hospital course: Ms. Starr is a 69 year old female - Time Spent with Patient Total time spent providing and/or coordinating discharge services: 22min - Discharge Medications Prescriptions: New Tramadol HCl [Ultram] 50 mg PO TID PRN 3 Days #10 tab PRN Reason: Pain Continued clonazePAM [Klonopin] 0.25 mg PO HS Temazepam [Restoril] 15 mg PO HS Quinine Sulfate [Qualaquin] 324 mg PO BID PRN PRN Reason: Leg Cramps Latanoprost [Xalatan] 1 drop LEFT EYE HS Ibandronate Sodium [Boniva] 150 mg PO QMONTH Escitalopram [Lexapro] 10 mg PO DAILY Ferrous Sulfate [Iron] 325 mg PO DAILY Loratadine [Claritin] 10 mg PO DAILY Home Medications: Escitalopram [Lexapro] 10 mg PO DAILY 06/17/18 [History] Ferrous Sulfate [Iron] 325 mg PO DAILY 06/17/18 [History] Ibandronate Sodium [Boniva] 150 mg PO QMONTH 06/17/18 [History] Latanoprost [Xalatan] 1 drop LEFT EYE HS 06/17/18 [History] Quinine Sulfate [Qualaquin] 324 mg PO BID PRN 06/17/18 [History] Temazepam [Restoril] 15 mg PO HS 06/17/18 [History] clonazePAM [Klonopin] 0.25 mg PO HS 06/17/18 [History] Loratadine [Claritin] 10 mg PO DAILY 06/04/19 [History] Tramadol HCl [Ultram] 50 mg PO TID PRN 3 Days #10 tab 06/06/19 [Rx] Allergies/Adverse Reactions: Allergy/AdvReac Type Severity Reaction Status Date / Time clindamycin AdvReac See Verified 06/05/19 18:06 Comments Penicillins AdvReac See Verified 06/05/19 18:06 Comments Sulfa (Sulfonamide AdvReac See Verified 06/05/19 18:06 Antibiotics) Comments cindamycin AdvReac See Uncoded 06/05/19 18:06 Comments Date of admission: 06/05/19 17:30 Primary care physician: Griffin Guajardo MD Consults: 06/04/19 19:57 Consult to Orthopedic Surgery [CONS] Stat Consulting Provider: Orthopedic and Sports Medicine Reason for Consult: pelvic fracture Time Notified: 19:58 Call Completed: Yes 06/04/19 22:05 Consult to Pastoral Services [CONS] Routine Comment: 06/04/19 23:46 Consult to Occupational Therapy [CONS] Routine Comment: Evaluate, develop and implement POC Reason for Consult: Patient fell while walking and suffered pelvic fracture. Dr. Lozano recommends pain mgmt and PT/OT therapy rehabilitation. Please assess patient for ambulation strength, stability, safety, and possible home assistive/rehabilitation needs for post-discharge planning. Does patient have active BEDREST order?: Yes Is patient medically & hemodynamically stable?: Yes Patient assessed for mobility or mobilized this visit?: No Consult to Mandarin Chinese Teacher [CONS] Routine Reason for SW Consult: Please assess patient for possible home needs for post-discharge planning. 06/04/19 23:49 Consult to Physical Therapy [CONS] Routine Comment: Evaluate, develop and implement POC Reason for Consult: Patient fell while walking and suffered pelvic fracture. Dr. Lozano recommends pain mgmt and PT/OT therapy rehabilitation. Please assess patient for ambulation strength, stability, safety, and possible home assistive/rehabilitation needs for post-discharge planning. Does patient have active BEDREST order?: Yes Is patient medically & hemodynamically stable?: Yes Patient assessed for mobility or mobilized this visit?: No - Constitutional Vitals: Temp Pulse Resp BP Pulse Ox 99.5 F 19 70 111/71 100 06/06/19 16:28 06/06/19 16:28 06/06/19 16:28 06/06/19 16:28 06/06/19 16:28 - Patient Status Disposition: Home, Self-Care Condition: Good - Discharge Instructions Follow Up With: Danny Lozano DO [Non-Partnered Physician] - 06/30/19 10:15 am Griffin Guajardo MD [Primary Care Provider] - 06/10/19 1:00 pm Additional Instructions: Please use walker for ambulation. Follow-up appointments: If there is not an appointment listed below, please call your physician and schedule a follow-up appointment. If you have congestive heart failure and your symptoms return, make an appointment with your physician. Medication List: Carry an up to date list of medications you are taking at all time. We have given you an updated medication list including any new medications that you have been prescribed. Please provide that list to your primary provider Symptoms: If your condition changes or you experience any of the following symptoms, notify your physician immediately: Unusual or worsening pain, fever, persistent nausea and vomiting, bleeding, i ncrease in swelling (especially in your legs), sudden weight gain, extreme dizziness, chest pain, increased drainage or redness from a wound or incision. Go to the emergency department if you experience a problem with breathing. Weights: If you have a history of swelling or shortness of breath, weigh yourself daily and notify your physician if you have a weight gain of two or more pounds in one day or 5 or more pounds in a week. If you experience any of the warning signs for stroke: Sudden numbness or weakness of the face, arm or leg; especially on one side of the body, sudden confusion, trouble speaking or understanding, sudden trouble seeing in one or both eyes, sudden trouble walking, dizziness, loss of balance or coordination, sudden sever headache with no cause; Call 911 or go to the emergency room. Stroke is a medical emergency. Some risk factors for stroke: Age, cigarette smoking, diabetes, excessive alcohol consumption, family history, high blood pressure, overweight, physical inactivity, prior stroke, heart attack, diagnosis of carotid artery stenosis or other artery disease. If you smoke, STOP: Smoking or tobacco use significantly increases your risk of heart and lung disease. Your chance of disease greatly increases if you continue to smoke. For more information, call the [place] tobacco quit line for smoking cessation 7-129-YLYY-NOW ( ) - Attending Attestation I examined this patient and my medical decision-making was reviewed with the Resident Physician on 06/06/19. I agree with the documented findings, disposition and treatment plan as described except to the extent set forth below. Ms Starr has been admitted for pubic ramus fracture. She was evaluated by PT and will have homecare. Today she is afebrile and pain is controlled. She is ready for discharge home. Exam: Alert. Comfortable. Not tachycardic. Plan: D/C home with [facility]. <MiriamKelly nevarez I - Last Filed: 06/06/19 17:29> - NOTES TO OUTPATIENT PROVIDER Notes to Outpatient Provider: patient is discharged home . with home health care refferal , on her home med plus tramadol for 3 days PRN Orders not resulted at time of discharge: Pending orders 06/07/19 04:00 Basic Metabolic Panel AM 0400 Complete Blood Count w/o Diff [HEME] AM 0400 Date of Encounter: 06/06/19 Time of Encounter: 08:30 - Discharge Diagnosis (1) Pelvis fracture, right Priority: Primary Status: Acute Qualifiers: Encounter type: subsequent encounter Pelvic bone location: pubis Sublocation of pubis: other portion of pubis Fracture type: closed Fracture healing: with routine healing Qualified Code(s): S32.591D - Other specified fracture of right pubis, subsequent encounter for fracture with routine healing (2) Anxiety and depression Priority: Secondary Status: Chronic (3) History of gastric bypass Priority: Secondary Status: Chronic Hospital course: Ms. Starr is a 69 year old female with past medical history of osteoporosis ,anxiety and depression presented to ED after she fell down and broke her HIP .Knee X-Ray 04/06 Stable right knee post arthroplasty. No acute osseous abnormality.pelvic X-rays 04/06 of the right hip reveal fractures right pubic symphysis and inferior pubic ramus ,orthopedic consult: stable fractures that do not require any intervention.patient is doing well , refused narcotics patient is doing well she is able to make urine , she passed gas but no bowel motion yet . She denies pain while laying still , pain is more when she walks , no fever or fracture site skin discoloration Pt. denies recent illness, fever, chills, nausea, vomiting, headache, striking her head, LOC, changes in vision, CP, SOB, chest congestion, cough, abdominal pain, diarrhea, constipation, dizziness, lightheadedness, numbness, tingling, pre-syncope, or syncope. Tylenol and Ultram ordered for mild to moderate pain . patient is discharged to home with home health referral and walker with the plan to followup with the orthopedic doctor and her PCP. and take tramadol for pain relief if needed for 3 days of a total 10 tab ordered Q8 . patient is stable and understand the treatment and plan . - Time Spent with Patient Total time spent providing and/or coordinating discharge services: Date of admission: 06/05/19 17:30 Primary care physician: Griffin Guajardo MD Consults: 06/04/19 19:57 Consult to Orthopedic Surgery [CONS] Stat Consulting Provider: Orthopedic and Sports Medicine Reason for Consult: pelvic fracture Time Notified: 19:58 Call Completed: Yes 06/04/19 22:05 Consult to Pastoral Services [CONS] Routine Comment: 06/04/19 23:46 Consult to Occupational Therapy [CONS] Routine Comment: Evaluate, develop and implement POC Reason for Consult: Patient fell while walking and suffered pelvic fracture. Dr. Lozano recommends pain mgmt and PT/OT therapy rehabilitation. Please assess patient for ambulation strength, stability, safety, and possible home assistive/rehabilitation needs for post-discharge planning. Does patient have active BEDREST order?: Yes Is patient medically & hemodynamically stable?: Yes Patient assessed for mobility or mobilized this visit?: No Consult to Mandarin Chinese Teacher [CONS] Routine Reason for SW Consult: Please assess patient for possible home needs for post-discharge planning. 06/04/19 23:49 Consult to Physical Therapy [CONS] Routine Comment: Evaluate, develop and implement POC Reason for Consult: Patient fell while walking and suffered pelvic fracture. Dr. Lozano recommends pain mgmt and PT/OT therapy rehabilitation. Please assess patient for ambulation strength, stability, safety, and possible home assist yaima/rehabilitation needs for post-discharge planning. Does patient have active BEDREST order?: Yes Is patient medically & hemodynamically stable?: Yes Patient assessed for mobility or mobilized this visit?: No Discharging clinician: Raoul Winters Anticipated date of discharge: 06/06/19 - Constitutional Vitals: Temp Pulse Resp BP Pulse Ox 98.1 F 61 17 121/61 98 06/06/19 06:53 06/06/19 06:53 06/06/19 06:53 06/06/19 06:53 06/06/19 06:53 General appearance: Present: cooperative, A&O X 3, pleasant, no acute distress, answers questions appropriately Exam: . - Head Head exam: Present: atraumatic, normal inspection - Eye Eye exam: Present: EOMI, normal appearance - Neck Neck exam general surgery: Present: full ROM, trachea midline - Respiratory Respiratory exam: Present: CTAB - Cardiovascular Cardiovascular exam: Present: RRR, +S1, +S2 - GI/Abdominal GI/Abdominal exam: Present: normal bowel sounds, soft - Back Exam Back exam: Present: normal inspection - Neurological Exam Neurological exam: Present: alert, oriented X3, no focal deficits - Psychiatric Psychiatric exam: Present: normal affect, normal mood - Patient Status Functional capacity at discharge: uses cane/walker Overall status at discharge: patient is back to baseline - Diet and Activity Activity: ambulate only with your walker Diet: advance to your usual diet
[2019-06-06] MEDS: Loratadine 10 MG TABLET PO SCH (08:23)
--- NOTE | 2019-06-06 13:22 | Physician Discharge Referral ---
Home Health/Hosp Referral Info Transfer to: Home Health Provider in Charge Post Discharge: PCP - Diagnosis (1) Osteoporosis Priority: Secondary Status: Chronic (2) Pelvis fracture, right Priority: Primary Status: Acute (3) Arthritis Priority: Secondary Status: Chronic (4) Glaucoma of left eye Priority: Secondary Status: Suspected (5) Seasonal allergies Priority: Secondary Status: Chronic (6) Anxiety and depression Priority: Secondary Status: Chronic (7) DVT prophylaxis Status: Acute (8) HTN (hypertension) Status: Chronic (9) JORDAN (obstructive sleep apnea) Status: Chronic - Respiratory Orders None Smoking Cessation: Smoking cessation has been advised. For more information, call the [place] Tobacco Quit Line at 8-979-EGPR-NOW. - Diet/Nutrition Diet/Nutrition Orders: Regular - Activity Activity Orders: Ambulate - Services Needed Following services are medically necessary services: Nursing, Physical Therapy, Occupational Therapy - Transfer Medications Prescriptions: Tramadol HCl [Ultram] 50 mg PO TID PRN 3 Days #10 tab PRN Reason: Pain Home Medications: Escitalopram [Lexapro] 10 mg PO DAILY 06/17/18 [History] Ferrous Sulfate [Iron] 325 mg PO DAILY 06/17/18 [History] Ibandronate Sodium [Boniva] 150 mg PO QMONTH 06/17/18 [History] Latanoprost [Xalatan] 1 drop LEFT EYE HS 06/17/18 [History] Quinine Sulfate [Qualaquin] 324 mg PO BID PRN 06/17/18 [History] Temazepam [Restoril] 15 mg PO HS 06/17/18 [History] clonazePAM [Klonopin] 0.25 mg PO HS 06/17/18 [History] Loratadine [Claritin] 10 mg PO DAILY 06/04/19 [History] Tramadol HCl [Ultram] 50 mg PO TID PRN 3 Days #10 tab 06/06/19 [Rx] Allergies/Adverse Reactions: Allergy/AdvReac Type Severity Reaction Status Date / Time clindamycin AdvReac See Verified 06/05/19 18:06 Comments Penicillins AdvReac See Verified 06/05/19 18:06 Comments Sulfa (Sulfonamide AdvReac See Verified 06/05/19 18:06 Antibiotics) Comments cindamycin AdvReac See Uncoded 06/05/19 18:06 Comments Certification: Further, I certify that my clinical findings support that this patient is homebound (i.e. absences from home require considerable and taxing effort and are for medical reasons or jain services or infrequently or short duration when for other reasons) because: Homebound Reason: Patient requires assistance of a person or device to safely leave home, Leaving home requires considerable and taxing effort due to condition Attestation: My signature below is to certify that this patient is under my care and that I, or nurse practitioner, or a physician's political science research assistant working with me, has a [id number] encounter with this patient.
[2019-06-06 16:30] VITALS: BP 111/71
== END 2019-06-06 17:42 | disposition home or self-care (01) | DRG 536 ==
LOC: EMEROOARM 17:16 → 3NENU 17:16 → SUATTDRO 21:19 → 3NENU 21:34
PROVIDERS: ADMIT Internal Medicine Nephrology; ATTEND Internal Medicine